=== PATIENT | female | born 1935 | race Asian ===

== ENCOUNTER 2016-07-24 14:05 | Inpatient (IN) | payer MEDICARE, OTHER ==
[~2016-07-24] VITALS: Ht 154.9 cm; Wt 70.3 kg
[~2016-07-24 14:05] MED LIST: ACTOS15 MG GT; AMLODIPINE BESY10 MG GT; ARTIFICIAL TEA1 EAC2 OP; ARTIFICIAL TEAR15 ML BOTH EYES; ASPIRIN EC325 MG GT; ASPIRIN81 MG GT; BONIVA150 MG GT; CIPROFLOXACIN500 M2 ORAL; DEXILANT60 MG GT; HYDRALAZINE HCL50 MG GT; KENALOG 0.1% CR15 GM APPLIC; LEVEMIR100 UNIT/1 SUBQ; LEVEMIR100 UNITS/ SUBQ; LIPITOR20 MG GT; MEROPENEM500 MG IV; METRONIDAZOLE500 MG ORAL; MULTIVITAMINS1 EAC8 GT; NAMENDA10 MG GT; NAMENDA5 MG GT; NOVOLIN R100 UNIT/1 SUBQ; NOVOLOG100 UNIT/3 SUBQ; PRO-STAT LIQUID30 ML ORAL; QUINAPRIL HCL40 MG GT; RANITIDINE50 MG/2 ML IV; SENNA S TABLET1 EAC1 GT; TRADJENTA5 MG GT; TRICOR145 MG GT; TYLENOL650 MG/20. GT; VANCOMYCIN1 GM IV; XYZAL5 MG GT
[2016-07-24 15:19] VITALS: BP 167/70
[2016-07-24 15:35] LABS: ALANINE AMINOTRANSFERASE 24 U/L (3-33); ALBUMIN/GLOBULIN RATIO 1.1 (1.0-2.7); ANION GAP 18 (5-15); ASPARTATE AMINO TRANSFERASE 28 U/L (5-40); CALCIUM 10.3 mg/dL (8.6-10.2); CARBON DIOXIDE 23 mEQ/L (20-30); CHLORIDE 106 mEQ/L (98-107); HEMOLYSIS 39; POTASSIUM 3.8 mEQ/L (3.4-4.9); SODIUM 147 mEQ/L (135-145); TOTAL PROTEIN 7.9 g/dL (6.6-8.7)
--- NOTE | 2016-07-24 15:51 | Consultation ---
Consult Note Consult Note asked to eval for renal failure- Chief Complaint: Malfunctioning Gastric Tube 81-year-old female presents to ED for G-tube placement. Per EMS patient G-tube is partially dislodged and has a tear. Noticed only today by nursing staff. Upon arrival patient showing no signs of distress. Patient has dementia and unable to provide any additional history at this time. No reported fevers or chills. No nausea or vomiting. No other aggravating relieving factors. Denies any other associated symptoms Coded Allergies: DORIPENEM (Verified Allergy, Severe, 03/06/15) PENICILLINS (Verified Allergy, Unknown, 06/22/13) Past Medical History: HTN, CHF, AFib, COPD, GERD Past Surgical History: other - gtube Hx Cardiac Problems: Yes - CHF, A fib, hyperlipidemia, CARDIOMEGALY Hx Hypertension: Yes Hx COPD: Yes Hx Diabetes: Yes Hx Cancer: No Hx Gastrointestinal Problems: Yes - GERD, Dysphagia, G-tube, APHASIA Hx Neurological Problems: Yes - Alzheimer's, dementia Hx Cerebrovascular Accident: Yes - Rt weakness, hemiplegia Hx Dementia: Yes Hx Alzheimer's Disease: Yes Hx Weakness: Yes - R SIDE Patient examined- data reviewed Assessment/Plan status: -Acute renal failure/ Underlying CKD -Dehydration -PEG malfunction -HTN (hypertension) -DM (diabetes mellitus) Plan: Hydrate- Per GI- Monitor renal parameters- BP control DINA MONAHAN Jul 24, 2016 15:51
[2016-07-24 16:33] LABS: BASOPHILS % (AUTO) 0.8 % (0.0-2.0); EOSINOPHILS % (AUTO) 2.3 % (0.0-3.0); LYMPHOCYTES % (AUTO) 9.7 % (20.0-45.0); MEAN CORPUSCULAR HEMOGLOBIN 32.5 PG (27.0-31.0); MEAN CORPUSCULAR HGB CONC 32.6 G/DL (32.0-36.0); MEAN CORPUSCULAR VOLUME 100 FL (80-99); MEAN PLATELET VOLUME 13.3 FL (6.5-10.1); MONOCYTES % (AUTO) 5.3 % (1.0-10.0); NEUTROPHILS % (AUTO) 81.9 % (45.0-75.0); PLATELET COUNT 205 K/UL (150-450); RED BLOOD COUNT 3.95 M/UL (4.20-5.40); RED CELL DISTRIBUTION WIDTH 13.3 % (11.6-14.8); WHITE BLOOD COUNT 13.4 K/UL (4.8-10.8)
[2016-07-24 16:56] LABS: APPEARANCE,URINE CLOUDY; KETONES,URINE NEGATIVE (NEGATIVE); LEUKOCYTE ESTERASE ,URINE NEGATIVE (NEGATIVE); NITRITE,URINE POSITIVE (NEGATIVE); PH,URINE 5 (4.5-8.0); PROTEIN,URINE 3+ (NEGATIVE); UROBILINOGEN,URINE NORMAL MG/DL (0.0-1.0)
[2016-07-24 17:04] LABS: RBC,URINE 0-2 /HPF (0 - 2); WBC,URINE 0-2 /HPF (0 - 2)
[2016-07-24 17:05] LABS: BACTERIA,URINE MANY /HPF
[2016-07-24 17:10] LABS: PROTHROMBIN TIME 10.3 SEC (9.30-11.50)
--- NOTE | 2016-07-24 18:06 | Infectious Diseases Prog Note ---
Assessment/Plan Problems: (1) UTI (urinary tract infection) Assessment & Plan: with H/O E coli resistant to quinolons, and allergy to penicillins and carbapenems, will start aztreonam empirically pending culture results. (2) Malfunction of percutaneous endoscopic gastrostomy (PEG) tube Assessment & Plan: recommend GI consult for replacement, hold tube feeding for now (3) Dehydration Assessment & Plan: continue IVF , since he is NPO, until G tube is fixed (4) Acute renal failure Assessment & Plan: suspect dehydration related, continue IVF, avoid nephrotoxic meds, nephrology is following (5) DM (diabetes mellitus) Assessment & Plan: recommend tight glycemic control to keep blood glucose between 80-120 Subjective Allergies: Coded Allergies: DORIPENEM (Verified Allergy, Severe, 03/06/15) PENICILLINS (Verified Allergy, Unknown, 06/22/13) Objective Vital Signs Last 24 Hour Vital Signs Date Time Temp Pulse Resp B/P Pulse Ox O2 Delivery O2 Flow Rate FiO2 07/24/16 17:26 216/132 07/24/16 15:19 97.2 65 20 167/70 99 Room Air 07/24/16 13:58 80 20 167/70 99 Room Air Height (Feet): 5 Height (Inches): 3.00 Weight (Pounds): 160 Laboratory Tests Test 07/24/16 14:55 07/24/16 16:00 07/24/16 16:40 Sodium Level 147 mEQ/L (135-145) H Potassium Level 3.8 mEQ/L (3.4-4.9) Chloride Level 106 mEQ/L (98-107) Carbon Dioxide Level 23 mEQ/L (20-30) Anion Gap 18 (5-15) H Blood Urea Nitrogen 58 mg/dL (7-23) H Creatinine 2.0 mg/dL (0.5-0.9) H Estimat Glomerular Filtration Rate mL/min (>60) Glucose Level 191 mg/dL (74-106) H Calcium Level 10.3 mg/dL (8.6-10.2) H Total Bilirubin 0.4 mg/dL (0.0-1.2) Aspartate Amino Transf (AST/SGOT) 28 U/L (5-40) Alanine Aminotransferase (ALT/SGPT) 24 U/L (3-33) Alkaline Phosphatase 83 U/L (35-104) Total Protein 7.9 g/dL (6.6-8.7) Albumin 4.3 g/dL (3.5-5.2) Globulin 3.6 g/dL Albumin/Globulin Ratio 1.1 (1.0-2.7) White Blood Count 13.4 K/UL (4.8-10.8) H Red Blood Count 3.95 M/UL (4.20-5.40) L Hemoglobin 12.8 G/DL (12.0-16.0) Hematocrit 39.3 % (37.0-47.0) Mean Corpuscular Volume 100 FL (80-99) H Mean Corpuscular Hemoglobin 32.5 PG (27.0-31.0) H Mean Corpuscular Hemoglobin Concent 32.6 G/DL (32.0-36.0) Red Cell Distribution Width 13.3 % (11.6-14.8) Platelet Count 205 K/UL (150-450) Mean Platelet Volume 13.3 FL (6.5-10.1) H Neutrophils (%) (Auto) 81.9 % (45.0-75.0) H Lymphocytes (%) (Auto) 9.7 % (20.0-45.0) L Monocytes (%) (Auto) 5.3 % (1.0-10.0) Eosinophils (%) (Auto) 2.3 % (0.0-3.0) Basophils (%) (Auto) 0.8 % (0.0-2.0) Prothrombin Time 10.3 SEC (9.30-11.50) Prothromb Time International Ratio 1.0 (0.9-1.1) Activated Partial Thromboplast Time 28 SEC (23-33) Urine Color Pale yellow Urine Appearance Cloudy Urine pH 5 (4.5-8.0) Urine Specific [place] 1.015 (1.005-1.035) Urine Protein 3+ (NEGATIVE) H Urine Glucose (UA) 3+ (NEGATIVE) H Urine Ketones Negative (NEGATIVE) Urine Occult Blood 1+ (NEGATIVE) H Urine Nitrite Positive (NEGATIVE) H Urine Bilirubin Negative (NEGATIVE) Urine Urobilinogen Normal MG/DL (0.0-1.0) Urine Leukocyte Esterase Negative (NEGATIVE) Urine RBC 0-2 /HPF (0 - 2) Urine WBC 0-2 /HPF (0 - 2) Urine Squamous Epithelial Cells None /LPF (NONE/OCC) Urine Bacteria Many /HPF (NONE) H Current Medications Medications (Trade) Dose Ordered Sig/Stephany Route PRN Reason Start Time Stop Time Status Last Admin Dose Admin Amlodipine Besylate 10 mg 10 mg DAILY GT 07/25/16 09:00 08/24/16 08:59 UNV Clonidine HCl 0.1 mg 0.1 mg Q4H PRN GT bp over 170 syst 07/24/16 16:00 08/23/16 15:59 UNV Levofloxacin (Levaquin 750mg/ D5W) 150 ml @ 100 mls/hr NOW ONCE IVPB 07/24/16 17:15 07/24/16 18:44 07/24/16 17:27 Sodium Chloride (Sodium Chloride 1000ml bag) 1,000 ml @ 50 mls/hr Q20H IV 07/24/16 15:45 08/23/16 15:44 UNV Mercedes Gamez M.D. Jul 24, 2016 18:06
[2016-07-24 19:03] VITALS: BP 164/79
[2016-07-24] MEDS ORDERED: Acetaminophen 650 MG SUPP RECTAL PRN (19:15)
[2016-07-24 20:00] VITALS: BP 168/67
[2016-07-24 21:11] VITALS: BP 151/61
[2016-07-24] MEDS: Aztreonam Inj 0.5 GM in D5W 55 ML IVPB SCH (21:56)
--- NOTE | 2016-07-24 22:28 | Emergency Room Report ---
History of Present Illness General Chief Complaint: Malfunctioning Gastric Tube Source: Medical Record Present Illness HPI 81-year-old female presents to ED for G-tube placement. Per EMS patient G-tube is partially dislodged and has a tear. Noticed only today by nursing staff. Upon arrival patient showing no signs of distress. Patient has dementia and unable to provide any additional history at this time. No reported fevers or chills. No nausea or vomiting. No other aggravating relieving factors. Denies any other associated symptoms Allergies: Coded Allergies: DORIPENEM (Verified Allergy, Severe, 03/06/15) PENICILLINS (Verified Allergy, Unknown, 06/22/13) Patient History Past Medical History: HTN, CHF, AFib, COPD, GERD Past Surgical History: other - gtube Pertinent Family History: none Social History: Denies: alcohol use, drug use, smoking Now: No Immunizations: UTD Reviewed Nursing Documentation: PMH: Agreed, PSxH: Agreed Nursing Documentation-PMH Past Medical History: No History, Except For Hx Cardiac Problems: Yes - CHF, A fib, hyperlipidemia, CARDIOMEGALY Hx Hypertension: Yes Hx COPD: Yes Hx Diabetes: Yes Hx Cancer: No Hx Gastrointestinal Problems: Yes - GERD, Dysphagia, G-tube, APHASIA Hx Neurological Problems: Yes - Alzheimer's, dementia Hx Cerebrovascular Accident: Yes - Rt weakness, hemiplegia Hx Dementia: Yes Hx Alzheimer's Disease: Yes Hx Weakness: Yes - R SIDE Review of Systems All Other Systems: negative except mentioned in HPI Physical Exam Vital Signs Date Time Temp Pulse Resp B/P Pulse Ox O2 Delivery O2 Flow Rate FiO2 07/24/16 13:58 80 20 167/70 99 Room Air 07/24/16 15:19 97.2 Sp02 EP Interpretation: reviewed, normal General Appearance: no apparent distress, alert, GCS 15, non-toxic Head: normocephalic Eyes: bilateral eye PERRL, bilateral eye normal inspection ENT: normal ENT inspection Neck: normal inspection Respiratory: chest non-tender, lungs clear, normal breath sounds, speaking full sentences Cardiovascular #1: regular rate, rhythm, no edema Gastrointestinal: normal bowel sounds, non tender, soft, non-distended, no guarding, no rebound, other - Gtube site C/D/I. superficial opening noted Rectal: deferred Genitourinary: no CVA tenderness Musculoskeletal: normal inspection Neurologic: other - dementia Psychiatric: other - dementia Skin: normal inspection Lymphatic: normal inspection Medical Decision Making Diagnostic Impression: Primary Impression: Acute renal failure Qualified Codes: N17.9 - Acute kidney failure, unspecified Additional Impressions: UTI (urinary tract infection) Qualified Codes: N39.0 - Urinary tract infection, site not specified malfunctioning G Tube Dehydration ER Course Hospital Course 81-year-old female presents to ED with dislodged G-tube Differential Diagnosis - cellulitis, abscess, malfunctioning Gtube, sepsis Clinical course Patient placed on stretcher. After initial history, physical exam reveals that the G-tube balloon was very superficial. This means that the G-tube was nearly completely dislodged. When they attempted to replace the G-tube I was unsuccessful as I believe the G-tube site has closed up At this time patient will require admission for new G-tube placed Labs reviewed-noted leukocytosis, hemoglobin/hematocrit stable, BUN/Cr elevated , Na elevated, UA + bacteria EKG - no ischemic changes CXR unremarkable Abx given. IVFs given. Dr Self consulted . Case discussed with Dr. Rosas and he agreed to accept the patient to his service for further care and support Diagnosis - ARF, UTI, malfunctioning G-tube, dehydration Admitted to floor in serious condition Labs Test 07/24/16 14:55 07/24/16 16:00 07/24/16 16:40 Sodium Level 147 mEQ/L (135-145) Potassium Level 3.8 mEQ/L (3.4-4.9) Chloride Level 106 mEQ/L (98-107) Carbon Dioxide Level 23 mEQ/L (20-30) Anion Gap 18 (5-15) Blood Urea Nitrogen 58 mg/dL (7-23) Creatinine 2.0 mg/dL (0.5-0.9) Estimat Glomerular Filtration Rate mL/min (>60) Glucose Level 191 mg/dL (74-106) Calcium Level 10.3 mg/dL (8.6-10.2) Total Bilirubin 0.4 mg/dL (0.0-1.2) Aspartate Amino Transf (AST/SGOT) 28 U/L (5-40) Alanine Aminotransferase (ALT/SGPT) 24 U/L (3-33) Alkaline Phosphatase 83 U/L (35-104) Total Protein 7.9 g/dL (6.6-8.7) Albumin 4.3 g/dL (3.5-5.2) Globulin 3.6 g/dL Albumin/Globulin Ratio 1.1 (1.0-2.7) White Blood Count 13.4 K/UL (4.8-10.8) Red Blood Count 3.95 M/UL (4.20-5.40) Hemoglobin 12.8 G/DL (12.0-16.0) Hematocrit 39.3 % (37.0-47.0) Mean Corpuscular Volume 100 FL (80-99) Mean Corpuscular Hemoglobin 32.5 PG (27.0-31.0) Mean Corpuscular Hemoglobin Concent 32.6 G/DL (32.0-36.0) Red Cell Distribution Width 13.3 % (11.6-14.8) Platelet Count 205 K/UL (150-450) Mean Platelet Volume 13.3 FL (6.5-10.1) Neutrophils (%) (Auto) 81.9 % (45.0-75.0) Lymphocytes (%) (Auto) 9.7 % (20.0-45.0) Monocytes (%) (Auto) 5.3 % (1.0-10.0) Eosinophils (%) (Auto) 2.3 % (0.0-3.0) Basophils (%) (Auto) 0.8 % (0.0-2.0) Prothrombin Time 10.3 SEC (9.30-11.50) Prothromb Time International Ratio 1.0 (0.9-1.1) Activated Partial Thromboplast Time 28 SEC (23-33) Urine Color Pale yellow Urine Appearance Cloudy Urine pH 5 (4.5-8.0) Urine Specific [place] 1.015 (1.005-1.035) Urine Protein 3+ (NEGATIVE) Urine Glucose (UA) 3+ (NEGATIVE) Urine Ketones Negative (NEGATIVE) Urine Occult Blood 1+ (NEGATIVE) Urine Nitrite Positive (NEGATIVE) Urine Bilirubin Negative (NEGATIVE) Urine Urobilinogen Normal MG/DL (0.0-1.0) Urine Leukocyte Esterase Negative (NEGATIVE) Urine RBC 0-2 /HPF (0 - 2) Urine WBC 0-2 /HPF (0 - 2) Urine Squamous Epithelial Cells None /LPF (NONE/OCC) Urine Bacteria Many /HPF (NONE) EKG Diagnostic Results Rate: normal Rhythm: NSR ST Segments: no acute changes ASA given to the pt in ED: No Rhythm Strip Diag. Results EP Interpretation: yes Rhythm: NSR, no PVC's, no ectopy Chest X-Ray Diagnostic Results EP Interpretation: No Findings: no consolidation, no effusion, no pneumothorax, no acute cardiopulmonary disease Number of Views: 1 Last Vital Signs Date Time Temp Pulse Resp B/P Pulse Ox O2 Delivery O2 Flow Rate FiO2 07/24/16 21:11 151/61 07/24/16 20:00 98.1 98 19 97 Room Air Status: improved Disposition: ADMITTED INPATIENT Condition: Serious Referrals: Jah Rosas MD (PCP) HAIR HAYES M.D. Jul 24, 2016 22:28
[2016-07-25] VITALS (7 sets, daily range): BP systolic 144–171; BP diastolic 68–88
[2016-07-25] MEDS: Aztreonam Inj 0.5 GM in D5W 55 ML IVPB SCH ×3 (05:54→21:05)
[2016-07-25 07:20] LABS: BASOPHILS % (AUTO) 0.7 % (0.0-2.0); EOSINOPHILS % (AUTO) 1.2 % (0.0-3.0); LYMPHOCYTES % (AUTO) 8.9 % (20.0-45.0); MEAN CORPUSCULAR HEMOGLOBIN 32.4 PG (27.0-31.0); MEAN CORPUSCULAR HGB CONC 33.1 G/DL (32.0-36.0); MEAN CORPUSCULAR VOLUME 98 FL (80-99); MEAN PLATELET VOLUME 13.8 FL (6.5-10.1); MONOCYTES % (AUTO) 5.7 % (1.0-10.0); NEUTROPHILS % (AUTO) 83.5 % (45.0-75.0); PLATELET COUNT 215 K/UL (150-450); RED BLOOD COUNT 3.74 M/UL (4.20-5.40); RED CELL DISTRIBUTION WIDTH 13.8 % (11.6-14.8); WHITE BLOOD COUNT 12.1 K/UL (4.8-10.8)
[2016-07-25 08:02] LABS: HEMOGLOBIN A1C 6.2 % (< 6.0)
[2016-07-25 08:21] LABS: ALANINE AMINOTRANSFERASE 19 U/L (3-33); ALBUMIN/GLOBULIN RATIO 1.2 (1.0-2.7); ANION GAP 19 (5-15); ASPARTATE AMINO TRANSFERASE 23 U/L (5-40); CALCIUM 9.6 mg/dL (8.6-10.2); CARBON DIOXIDE 22 mEQ/L (20-30); CHLORIDE 110 mEQ/L (98-107); CHOLESTEROL 129 mg/dL (< 200); CREATININE 2.2 mg/dL (0.5-0.9); CRP QUANT 0.9 mg/dL (< 0.5); HEMOLYSIS 9; LDL CHOLESTEROL (CALC.) 60 mg/dL (60-99); MAGNESIUM 2.3 mg/dL (1.7-2.5); PHOSPHORUS 3.5 mg/dL (2.5-4.8); POTASSIUM 4.1 mEQ/L (3.4-4.9); SODIUM 151 mEQ/L (135-145); TOTAL PROTEIN 7.2 g/dL (6.6-8.7); URIC ACID 5.4 mg/dL (3.0-7.5)
[2016-07-25 08:22] LABS: THYROID STIMULATING HORMONE 0.545 uIU/mL (0.300-4.500)
--- NOTE | 2016-07-25 12:26 | General Progress Note ---
Assessment/Plan Status: unchanged Status Narrative Cr higher 2.2 Assessment/Plan status: -Acute renal failure/ Underlying CKD -Dehydration -PEG malfunction -HTN (hypertension) -DM (diabetes mellitus) Plan: Hydrate- Per GI- Monitor renal parameters- BP control- on NTP and TTS II until GT is inserted Subjective ROS Limited/Unobtainable: No Constitutional: Reports: malaise, weakness Allergies: Coded Allergies: DORIPENEM (Verified Allergy, Severe, 03/06/15) PENICILLINS (Verified Allergy, Unknown, 06/22/13) Objective Last 24 Hour Vital Signs Date Time Temp Pulse Resp B/P Pulse Ox O2 Delivery O2 Flow Rate FiO2 07/25/16 09:00 94 144/77 07/25/16 08:42 97.0 94 19 144/77 95 Room Air 07/25/16 06:10 159/76 07/25/16 04:00 97.2 99 21 171/88 99 Room Air 07/25/16 00:18 97.2 92 19 162/68 99 Room Air 07/24/16 21:11 151/61 07/24/16 20:01 164/79 07/24/16 20:00 98.1 98 19 168/67 97 Room Air 07/24/16 19:03 97.3 100 20 164/79 100 Room Air 07/24/16 18:20 97.2 65 20 181/76 99 Room Air 07/24/16 18:10 181/76 07/24/16 17:26 216/132 07/24/16 15:19 97.2 65 20 167/70 99 Room Air 07/24/16 13:58 80 20 167/70 99 Room Air Intake and Output 07/24/16 07/25/16 19:00 07:00 Intake Total 0 ml 560 ml Output Total 800 ml Balance 0 ml -240 ml Intake Oral 0 ml IV Total 560 ml Output Urine Total 800 ml # Voids 1 # Bowel Movements 1 Laboratory Tests 07/24/16 14:55: Sodium Level 147H, Potassium Level 3.8, Chloride Level 106, Carbon Dioxide Level 23, Anion Gap 18H, Blood Urea Nitrogen 58H, Creatinine 2.0H, Estimat Glomerular Filtration Rate , Glucose Level 191H, Calcium Level 10.3H, Total Bilirubin 0.4, Aspartate Amino Transf (AST/SGOT) 28, Alanine Aminotransferase ( ALT/SGPT) 24, Alkaline Phosphatase 83, Total Protein 7.9, Albumin 4.3, Globulin 3.6, Albumin/Globulin Ratio 1.1 07/24/16 16:00: White Blood Count 13.4H, Red Blood Count 3.95L, Hemoglobin 12.8, Hematocrit 39.3 , Mean Corpuscular Volume 100H, Mean Corpuscular Hemoglobin 32.5H, Mean Corpuscular Hemoglobin Concent 32.6, Red Cell Distribution Width 13.3, Platelet Count 205, Mean Platelet Volume 13.3H, Neutrophils (%) (Auto) 81.9H, Lymphocytes (%) (Auto) 9.7L, Monocytes (%) (Auto) 5.3, Eosinophils (%) (Auto) 2.3, Basophils (%) (Auto) 0.8, Prothrombin Time 10.3, Prothromb Time International Ratio 1.0, Activated Partial Thromboplast Time 28 07/24/16 16:40: Urine Color Pale yellow, Urine Appearance Cloudy, Urine pH 5, Urine Specific [place] 1.015, Urine Protein 3+H, Urine Glucose (UA) 3+H, Urine Ketones Negative , Urine Occult Blood 1+H, Urine Nitrite PositiveH, Urine Bilirubin Negative, Urine Urobilinogen Normal, Urine Leukocyte Esterase Negative, Urine RBC 0-2, Urine WBC 0-2, Urine Squamous Epithelial Cells None, Urine Bacteria ManyH 07/25/16 02:00: Urine Eosinophils None seen, Urine Random Sodium 39 07/25/16 05:35: White Blood Count 12.1H, Red Blood Count 3.74L, Hemoglobin 12.1, Hematocrit 36.6L, Mean Corpuscular Volume 98, Mean Corpuscular Hemoglobin 32.4H, Mean Corpuscular Hemoglobin Concent 33.1, Red Cell Distribution Width 13.8, Platelet Count 215, Mean Platelet Volume 13.8H, Neutrophils (%) (Auto) 83.5H, Lymphocytes (%) (Auto) 8.9L, Monocytes (%) (Auto) 5.7, Eosinophils (%) (Auto) 1.2, Basophils (%) (Auto) 0.7, Sodium Level 151H, Potassium Level 4.1, Chloride Level 110H, Carbon Dioxide Level 22, Anion Gap 19H, Blood Urea Nitrogen 54H, Creatinine 2.2H, Estimat Glomerular Filtration Rate , Glucose Level 161H, Hemoglobin A1c 6.2H, Uric Acid 5.4, Calcium Level 9.6, Phosphorus Level 3.5, Magnesium Level 2.3, Total Bilirubin 0.5, Gamma Glutamyl Transpeptidase 17, Aspartate Amino Transf (AST/SGOT) 23, Alanine Aminotransferase (ALT/SGPT) 19, Alkaline Phosphatase 64, Total Creatine Kinase 63, C-Reactive Protein, Quantitative 0.9H, Pro-B-Type Natriuretic Peptide 3441H, Total Protein 7.2, Albumin 4.0, Globulin 3.2, Albumin/Globulin Ratio 1.2, Triglycerides Level 128, Cholesterol Level 129, LDL Cholesterol 60, HDL Cholesterol 43, Cholesterol/HDL Ratio 3.0L, Thyroid Stimulating Hormone (TSH) 0.545 Height (Feet): 5 Height (Inches): 3.00 Weight (Pounds): 160 General Appearance: no apparent distress Abdomen: other - GT out DINA MONAHAN Jul 25, 2016 12:25
--- NOTE | 2016-07-25 12:52 | Diagnostic Imaging Report ---
Indications: Cough Technique: Portable AP chest Findings: Comparison: 06/06/16 Cardiac silhouette remains enlarged. Pulmonary vasculature remains within normal limits. Inspiratory effort has improved. Lungs and pleura remain clear. Calcification and elongation, ectasia of thoracic aorta unchanged. Bones are diffusely demineralized.. IMPRESSION: No evidence of acute disease, unchanged Stable chronic changes as described
[2016-07-25] MEDS: Nitroglycerin 2% oint pkt TOPIC SCH ×2 (13:17→18:49)
--- NOTE | 2016-07-25 16:56 | General Progress Note ---
Assessment/Plan Assessment/Plan Assessment - OBS - Dysphagia - failed swallow - HTN - DM - Azotemia - No family, next of kin, or DPOA available for formal consent Recommendations - NPO - IVF - Needs PEG on urgent basis to avoid malnutrition and demise. Will proceed with MD consent - PEG Thursday at 10 am Subjective Allergies: Coded Allergies: DORIPENEM (Verified Allergy, Severe, 03/06/15) PENICILLINS (Verified Allergy, Unknown, 06/22/13) Objective Last 24 Hour Vital Signs Date Time Temp Pulse Resp B/P Pulse Ox O2 Delivery O2 Flow Rate FiO2 07/25/16 16:00 97.9 90 20 152/81 98 Room Air 07/25/16 13:17 149/75 07/25/16 12:35 96.9 94 19 149/75 95 Room Air 07/25/16 09:00 94 144/77 07/25/16 08:42 97.0 94 19 144/77 95 Room Air 07/25/16 06:10 159/76 07/25/16 04:00 97.2 99 21 171/88 99 Room Air 07/25/16 00:18 97.2 92 19 162/68 99 Room Air 07/24/16 21:11 151/61 07/24/16 20:01 164/79 07/24/16 20:00 98.1 98 19 168/67 97 Room Air 07/24/16 19:03 97.3 100 20 164/79 100 Room Air 07/24/16 18:20 97.2 65 20 181/76 99 Room Air 07/24/16 18:10 181/76 07/24/16 17:26 216/132 Intake and Output 07/24/16 07/25/16 19:00 07:00 Intake Total 0 ml 560 ml Output Total 800 ml Balance 0 ml -240 ml Intake Oral 0 ml IV Total 560 ml Output Urine Total 800 ml # Voids 1 # Bowel Movements 1 Laboratory Tests 07/25/16 02:00: Urine Eosinophils None seen, Urine Random Sodium 39 07/25/16 05:35: White Blood Count 12.1H, Red Blood Count 3.74L, Hemoglobin 12.1, Hematocrit 36.6L, Mean Corpuscular Volume 98, Mean Corpuscular Hemoglobin 32.4H, Mean Corpuscular Hemoglobin Concent 33.1, Red Cell Distribution Width 13.8, Platelet Count 215, Mean Platelet Volume 13.8H, Neutrophils (%) (Auto) 83.5H, Lymphocytes (%) (Auto) 8.9L, Monocytes (%) (Auto) 5.7, Eosinophils (%) (Auto) 1.2, Basophils (%) (Auto) 0.7, Sodium Level 151H, Potassium Level 4.1, Chloride Level 110H, Carbon Dioxide Level 22, Anion Gap 19H, Blood Urea Nitrogen 54H, Creatinine 2.2H, Estimat Glomerular Filtration Rate , Glucose Level 161H, Hemoglobin A1c 6.2H, Uric Acid 5.4, Calcium Level 9.6, Phosphorus Level 3.5, Magnesium Level 2.3, Total Bilirubin 0.5, Gamma Glutamyl Transpeptidase 17, Aspartate Amino Transf (AST/SGOT) 23, Alanine Aminotransferase (ALT/SGPT) 19, Alkaline Phosphatase 64, Total Creatine Kinase 63, C-Reactive Protein, Quantitative 0.9H, Pro-B-Type Natriuretic Peptide 3441H, Total Protein 7.2, Albumin 4.0, Globulin 3.2, Albumin/Globulin Ratio 1.2, Triglycerides Level 128, Cholesterol Level 129, LDL Cholesterol 60, HDL Cholesterol 43, Cholesterol/HDL Ratio 3.0L, Thyroid Stimulating Hormone (TSH) 0.545 Height (Feet): 5 Height (Inches): 3.00 Weight (Pounds): 160 MARK DELGADO Jul 25, 2016 16:56
--- NOTE | 2016-07-25 17:08 | Consultation ---
DATE OF CONSULTATION: INFECTIOUS DISEASE CONSULTATION REQUESTING PHYSICIAN: Jah Rosas M.D. REASON FOR CONSULTATION: Urinary tract infection. Recommendation for antibiotics therapy. HISTORY OF PRESENT ILLNESS: The patient is a 81-year-old female with past medical history of hypertension, CHF, atrial fibrillation, COPD and GERD who had G-tube for feeding was sent to [facility] for malfunctioning G-tube. G-tube was found to be dislodged and had a tear in it. It was noticed by nursing staff. There was no drainage or skin erythema or any infection around it. The patient did not have any fever or chills. Urinalysis in the emergency room showed evidence of infection, so I was consulted by the primary provider for antibiotics recommendation to treat her urinary tract infection. Of note, the patient is demented, cannot provide any history and history was mainly obtained from the medical record and nursing staff. PAST MEDICAL HISTORY: Significant for hypertension, CHF, atrial fibrillation, COPD, and GERD. PAST SURGICAL HISTORY: She had G-tube placement . MEDICATIONS: The patient received levofloxacin in the emergency room. For the rest of her medications, please refer to [facility]. ALLERGIES: She is allergic to doripenem and penicillin. SOCIAL HISTORY: The patient lives with her daughter. Denies any recent drugs, tobacco, or alcohol. FAMILY HISTORY: Unable to obtain at this point. REVIEW OF SYSTEMS: Unable to obtain. The patient is demented, cannot provide any history. PHYSICAL EXAMINATION: GENERAL: The patient is an elderly female, demented, lying in bed, alert, not in distress. VITAL SIGNS: Temperature 97.3 degrees, pulse 100, respirations 20, blood pressure 164/79, and saturation 100% on room air. HEENT: Normocephalic and atraumatic. Pale sclera. Dry oral mucosa. NECK: Supple. No lymphadenopathy. CARDIOVASCULAR: She is tachycardic. S1 and S2 positive. No gallop. LUNGS: She had diminished breathing sounds at the bases. No wheezing or rhonchi. Normal breathing efforts. ABDOMEN: Soft, nontender, and nondistended. No guarding. No organomegaly. G-tube site looks intact. EXTREMITIES: No edema. No cyanosis. SKIN: She had fair on her lower extremities skin tear. LABORATORY AND DIAGNOSTIC DATA: White count 13.4, hemoglobin 12.8, and platelet count 205,000. BUN of 58 and creatinine of 2. Urinalysis showed positive nitrites, many bacteria in the urine, and no eosinophil seen. Microbiology, urine culture was sent. Imaging not available in the system yet. ASSESSMENT AND PLAN: 1. Urinary tract infection with history of E. coli resistant to quinolones and she is allergic to penicillin and carbapenem. We will start aztreonam empirically. Pending culture results. We will tailor antibiotics as needed. 2. Malfunctioning of gastrostomy tube. Recommend GI consultation for possible replacement and hold tube feeding for now. 3. Acute renal failure due to dehydration. Continue IV fluids. Avoid nephrotoxic medications. Consult Nephrology. 4. Dehydration. Continue IV fluids since the patient is NPO until G-tube is replaced. 5. Diabetes. Recommend tight glycemic control to keep blood glucose between 80s to 120s. 6. Dementia. Continue supportive care. 7. Lower extremity skin tear. Continue local care. Consult wound care team. Mercedes Gamez M.D. DR: MEG JOB#: [id number] CC: [id number]
[2016-07-25] MEDS ORDERED: 1/2 NS 1000ml IV ONE (18:19)
--- NOTE | 2016-07-25 20:27 | Wound Nurse Progress Note ---
Wound RN Progress Note Wound Consult Saw this Pt today. With an order for topical Elimite cream from MD. Upon assessment noted a rashes on lower abdominal area, Bilateral lower and upper extremities. Pt complaint of itchiness. no bleeding no drainage noted. will cont to monitor. ELVA MORRIS RN Jul 25, 2016 20:27
[2016-07-26] VITALS: BP 174/82
[2016-07-26] MEDS: Nitroglycerin 2% oint pkt TOPIC SCH ×4 (00:25→18:03)
[2016-07-26 04:00] VITALS: BP 146/75
[2016-07-26] MEDS: Aztreonam Inj 0.5 GM in D5W 55 ML IVPB SCH ×3 (06:20→21:52)
[2016-07-26 06:55] LABS: ALANINE AMINOTRANSFERASE 17 U/L (3-33); ALBUMIN/GLOBULIN RATIO 1.3 (1.0-2.7); ANION GAP 18 (5-15); ASPARTATE AMINO TRANSFERASE 21 U/L (5-40); CALCIUM 9.1 mg/dL (8.6-10.2); CARBON DIOXIDE 22 mEQ/L (20-30); CHLORIDE 113 mEQ/L (98-107); CREATININE 2.1 mg/dL (0.5-0.9); HEMOLYSIS 3; MAGNESIUM 2.3 mg/dL (1.7-2.5); PHOSPHORUS 3.7 mg/dL (2.5-4.8); POTASSIUM 3.6 mEQ/L (3.4-4.9); SODIUM 153 mEQ/L (135-145); TOTAL PROTEIN 6.9 g/dL (6.6-8.7)
[2016-07-26 08:00] VITALS: BP 149/68
--- NOTE | 2016-07-26 09:54 | General Progress Note ---
Assessment/Plan Status: unchanged Assessment/Plan status: -Acute renal failure/ Underlying CKD -Dehydration -PEG malfunction -HTN (hypertension) -DM (diabetes mellitus) Plan: Hydrate- with D5 Per GI- Monitor renal parameters- BP control- on NTP and TTS II until GT is inserted Subjective ROS Limited/Unobtainable: No Constitutional: Reports: malaise Allergies: Coded Allergies: DORIPENEM (Verified Allergy, Severe, 03/06/15) PENICILLINS (Verified Allergy, Unknown, 06/22/13) Objective Last 24 Hour Vital Signs Date Time Temp Pulse Resp B/P Pulse Ox O2 Delivery O2 Flow Rate FiO2 07/26/16 08:28 77 149/68 07/26/16 08:00 97.7 77 19 149/68 100 Room Air 07/26/16 06:39 146/75 07/26/16 04:00 97.9 93 18 146/75 98 07/26/16 00:25 174/82 07/26/16 00:00 97.7 89 18 174/82 97 Room Air 07/25/16 20:00 97.8 93 19 151/76 98 Room Air 07/25/16 18:49 152/81 07/25/16 16:00 97.9 90 20 152/81 98 Room Air 07/25/16 13:17 149/75 07/25/16 12:35 96.9 94 19 149/75 95 Room Air Intake and Output 07/25/16 07/26/16 19:00 07:00 Intake Total 655 ml 255 ml Output Total 675 ml 475 ml Balance -20 ml -220 ml IV Total 655 ml 255 ml Output Urine Total 675 ml 475 ml # Bowel Movements 1 Laboratory Tests 07/26/16 05:10: Sodium Level 153H, Potassium Level 3.6, Chloride Level 113H, Carbon Dioxide Level 22, Anion Gap 18H, Blood Urea Nitrogen 51H, Creatinine 2.1H, Estimat Glomerular Filtration Rate , Glucose Level 149H, Calcium Level 9.1, Phosphorus Level 3.7, Magnesium Level 2.3, Total Bilirubin 0.5, Aspartate Amino Transf (AST /SGOT) 21, Alanine Aminotransferase (ALT/SGPT) 17, Alkaline Phosphatase 61, Total Protein 6.9, Albumin 3.9, Globulin 3.0, Albumin/Globulin Ratio 1.3 07/26/16 06:00: Urine Eosinophils None seen Height (Feet): 5 Height (Inches): 3.00 Weight (Pounds): 160 General Appearance: no apparent distress Objective PE not changed DINA MONAHAN Jul 26, 2016 09:54
[2016-07-26 11:13] VITALS: BP 137/61
--- NOTE | 2016-07-26 11:45 | General Progress Note ---
Assessment/Plan Problem List: (1) HTN (hypertension) ICD Codes: I10 - HTN (hypertension) SNOMED: 36715184 (2) Anemia ICD Codes: D64.9 - Anemia, unspecified SNOMED: 267723550 (3) Renal insufficiency (4) UTI (urinary tract infection) ICD Codes: N39.0 - Urinary tract infection, site not specified SNOMED: 23148866 (5) DM (diabetes mellitus) ICD Codes: E11.9 - DM (diabetes mellitus) SNOMED: 94259769 (6) Malfunction of percutaneous endoscopic gastrostomy (PEG) tube ICD Codes: K94.23 - Malfunction of percutaneous endoscopic gastrostomy (PEG) tube SNOMED: 911346469 (7) Acute renal failure ICD Codes: N17.9 - Acute renal failure SNOMED: 02219615 Qualifiers: Qualified Codes: N17.9 - Acute kidney failure, unspecified (8) UTI (urinary tract infection) ICD Codes: N39.0 - Urinary tract infection, site not specified SNOMED: 71982631 Qualifiers: Qualified Codes: N39.0 - Urinary tract infection, site not specified (9) Sepsis ICD Codes: A41.9 - Sepsis, unspecified organism SNOMED: 86692981 Status: progressing Assessment/Plan tear of peg arf sepsis uti afebrile clinically improving Subjective ROS Limited/Unobtainable: Yes Constitutional: Reports: no symptoms Allergies: Coded Allergies: DORIPENEM (Verified Allergy, Severe, 03/06/15) PENICILLINS (Verified Allergy, Unknown, 06/22/13) Objective Last 24 Hour Vital Signs Date Time Temp Pulse Resp B/P Pulse Ox O2 Delivery O2 Flow Rate FiO2 07/26/16 11:18 137/61 07/26/16 11:13 97.2 71 18 137/61 100 Room Air 07/26/16 08:28 77 149/68 07/26/16 08:00 97.7 77 19 149/68 100 Room Air 07/26/16 06:39 146/75 07/26/16 04:00 97.9 93 18 146/75 98 07/26/16 00:25 174/82 07/26/16 00:00 97.7 89 18 174/82 97 Room Air 07/25/16 20:00 97.8 93 19 151/76 98 Room Air 07/25/16 18:49 152/81 07/25/16 16:00 97.9 90 20 152/81 98 Room Air 07/25/16 13:17 149/75 07/25/16 12:35 96.9 94 19 149/75 95 Room Air Intake and Output 07/25/16 07/26/16 19:00 07:00 Intake Total 655 ml 310 ml Output Total 675 ml 475 ml Balance -20 ml -165 ml IV Total 655 ml 310 ml Output Urine Total 675 ml 475 ml # Bowel Movements 1 Laboratory Tests 07/26/16 05:10: Sodium Level 153H, Potassium Level 3.6, Chloride Level 113H, Carbon Dioxide Level 22, Anion Gap 18H, Blood Urea Nitrogen 51H, Creatinine 2.1H, Estimat Glomerular Filtration Rate , Glucose Level 149H, Calcium Level 9.1, Phosphorus Level 3.7, Magnesium Level 2.3, Total Bilirubin 0.5, Aspartate Amino Transf (AST /SGOT) 21, Alanine Aminotransferase (ALT/SGPT) 17, Alkaline Phosphatase 61, Total Protein 6.9, Albumin 3.9, Globulin 3.0, Albumin/Globulin Ratio 1.3 07/26/16 06:00: Urine Eosinophils None seen Height (Feet): 5 Height (Inches): 3.00 Weight (Pounds): 160 EENT: PERRL/EOMI Neck: supple Cardiovascular: normal rate Respiratory/Chest: lungs clear Abdomen: soft Jah Rosas MD Jul 26, 2016 11:45
--- NOTE | 2016-07-26 13:50 | General Progress Note ---
Assessment/Plan Problem List: (1) Anemia ICD Codes: D64.9 - Anemia, unspecified SNOMED: 936051012 (2) DM (diabetes mellitus) ICD Codes: E11.9 - DM (diabetes mellitus) SNOMED: 14225896 (3) malfunctioning G Tube Assessment/Plan pending PEG placement on Thursday Subjective ROS Limited/Unobtainable: No Allergies: Coded Allergies: DORIPENEM (Verified Allergy, Severe, 03/06/15) PENICILLINS (Verified Allergy, Unknown, 06/22/13) Objective Last 24 Hour Vital Signs Date Time Temp Pulse Resp B/P Pulse Ox O2 Delivery O2 Flow Rate FiO2 07/26/16 11:18 137/61 07/26/16 11:13 97.2 71 18 137/61 100 Room Air 07/26/16 08:28 77 149/68 07/26/16 08:00 97.7 77 19 149/68 100 Room Air 07/26/16 06:39 146/75 07/26/16 04:00 97.9 93 18 146/75 98 07/26/16 00:25 174/82 07/26/16 00:00 97.7 89 18 174/82 97 Room Air 07/25/16 20:00 97.8 93 19 151/76 98 Room Air 07/25/16 18:49 152/81 07/25/16 16:00 97.9 90 20 152/81 98 Room Air Intake and Output 07/25/16 07/26/16 19:00 07:00 Intake Total 655 ml 310 ml Output Total 675 ml 475 ml Balance -20 ml -165 ml IV Total 655 ml 310 ml Output Urine Total 675 ml 475 ml # Bowel Movements 1 Laboratory Tests 07/26/16 05:10: Sodium Level 153H, Potassium Level 3.6, Chloride Level 113H, Carbon Dioxide Level 22, Anion Gap 18H, Blood Urea Nitrogen 51H, Creatinine 2.1H, Estimat Glomerular Filtration Rate , Glucose Level 149H, Calcium Level 9.1, Phosphorus Level 3.7, Magnesium Level 2.3, Total Bilirubin 0.5, Aspartate Amino Transf (AST /SGOT) 21, Alanine Aminotransferase (ALT/SGPT) 17, Alkaline Phosphatase 61, Total Protein 6.9, Albumin 3.9, Globulin 3.0, Albumin/Globulin Ratio 1.3 07/26/16 06:00: Urine Eosinophils None seen Height (Feet): 5 Height (Inches): 3.00 Weight (Pounds): 160 General Appearance: no apparent distress EENT: normal ENT inspection Neck: supple Cardiovascular: normal rate Respiratory/Chest: decreased breath sounds Abdomen: normal bowel sounds, non tender, soft Extremities: non-tender SOUTH RIBEIRO Jul 26, 2016 13:49
[2016-07-26 16:00] VITALS: BP 100/65
--- NOTE | 2016-07-26 16:41 | Infectious Diseases Prog Note ---
Assessment/Plan Problems: (1) UTI (urinary tract infection) Assessment & Plan: with MDR E.coli , continue aztreonam for 5 days (2) Malfunction of percutaneous endoscopic gastrostomy (PEG) tube Assessment & Plan: recommend GI consult for replacement, hold tube feeding for now (3) Dehydration Assessment & Plan: continue IVF , since he is NPO, until G tube is fixed (4) Acute renal failure Assessment & Plan: suspect dehydration related, continue IVF, avoid nephrotoxic meds, nephrology is following (5) DM (diabetes mellitus) Assessment & Plan: recommend tight glycemic control to keep blood glucose between 80-120 (6) Renal insufficiency Assessment & Plan: monitor renal function , avoid nephrotoxic meds Subjective ROS Limited/Unobtainable: Yes Allergies: Coded Allergies: DORIPENEM (Verified Allergy, Severe, 03/06/15) PENICILLINS (Verified Allergy, Unknown, 06/22/13) Subjective she is demented, lying in bed, alert, not in distress. Objective Vital Signs Last 24 Hour Vital Signs Date Time Temp Pulse Resp B/P Pulse Ox O2 Delivery O2 Flow Rate FiO2 07/26/16 16:00 64 16 100/65 Room Air 07/26/16 11:18 137/61 07/26/16 11:13 97.2 71 18 137/61 100 Room Air 07/26/16 08:28 77 149/68 07/26/16 08:00 97.7 77 19 149/68 100 Room Air 07/26/16 06:39 146/75 07/26/16 04:00 97.9 93 18 146/75 98 07/26/16 00:25 174/82 07/26/16 00:00 97.7 89 18 174/82 97 Room Air 07/25/16 20:00 97.8 93 19 151/76 98 Room Air 07/25/16 18:49 152/81 Height (Feet): 5 Height (Inches): 3.00 Weight (Pounds): 160 General Appearance: WD/WN, no acute distress HEENT: normocephalic, atraumatic, anicteric, mucous membranes moist Respiratory/Chest: chest wall non-tender, lungs clear, normal breath sounds, no respiratory distress, no accessory muscle use Cardiovascular: normal peripheral pulses, normal rate, regular rhythm Abdomen: normal bowel sounds, soft, non tender, no organomegaly, non distended , no mass, no scars Extremities: no cyanosis, no clubbing Skin: no rash, no lesions, ulcers Microbiology Date/Time Source Procedure Growth Status 07/24/16 16:25 Nasal Nares MRSA Culture - Final NO METHICILLIN RESISTANT STAPH AUREUS... Complete 07/24/16 16:40 Urine,Clean Catch Urine Culture - Final Escherichia Coli Complete 07/24/16 23:45 Abdomen Gram Stain - Final Resulted 07/24/16 23:45 Wound Culture - Preliminary Staphylococcus Aureus Resulted 07/24/16 16:25 Rectal Mucosa VRE Culture - Final NO VANCOMYCIN RESISTANT ENTEROCOCCUS ... Complete Laboratory Tests Test 07/26/16 05:10 07/26/16 06:00 Sodium Level 153 mEQ/L (135-145) H Potassium Level 3.6 mEQ/L (3.4-4.9) Chloride Level 113 mEQ/L (98-107) H Carbon Dioxide Level 22 mEQ/L (20-30) Anion Gap 18 (5-15) H Blood Urea Nitrogen 51 mg/dL (7-23) H Creatinine 2.1 mg/dL (0.5-0.9) H Estimat Glomerular Filtration Rate mL/min (>60) Glucose Level 149 mg/dL (74-106) H Calcium Level 9.1 mg/dL (8.6-10.2) Phosphorus Level 3.7 mg/dL (2.5-4.8) Magnesium Level 2.3 mg/dL (1.7-2.5) Total Bilirubin 0.5 mg/dL (0.0-1.2) Aspartate Amino Transf (AST/SGOT) 21 U/L (5-40) Alanine Aminotransferase (ALT/SGPT) 17 U/L (3-33) Alkaline Phosphatase 61 U/L (35-104) Total Protein 6.9 g/dL (6.6-8.7) Albumin 3.9 g/dL (3.5-5.2) Globulin 3.0 g/dL Albumin/Globulin Ratio 1.3 (1.0-2.7) Urine Eosinophils None seen Current Medications Medications (Trade) Dose Ordered Sig/Stephany Route PRN Reason Start Time Stop Time Status Last Admin Dose Admin Acetaminophen (Tylenol) 650 mg Q4H PRN RECTAL Mild Pain (Pain Scale 1-3) 07/24/16 19:15 08/23/16 19:14 Amlodipine Besylate (Norvasc) 10 mg DAILY GT 07/25/16 09:00 08/24/16 08:59 Aztreonam/Dextrose (Azactam/D5W) 55 ml @ 110 mls/hr Q8HR IVPB 07/24/16 22:00 07/31/16 21:59 07/26/16 13:13 Clonidine HCl (Catapres TTS-2) 1 patch QWEEK TDERMAL 07/24/16 20:00 08/23/16 19:59 07/24/16 20:01 Clonidine HCl 0.1 mg 0.1 mg Q4H PRN GT bp over 170 syst 07/24/16 16:00 08/23/16 15:59 Dextrose (D5W 1000ml) 1,000 ml @ 50 mls/hr Q20H IV 07/26/16 10:00 08/25/16 09:59 07/26/16 10:14 Dextrose (Dextrose 50%) 50 ml STAT PRN IV Hypoglycemia 07/24/16 20:30 08/23/16 20:29 Nitroglycerin 1 inch 1 inch Q6HR TOPIC 07/25/16 13:30 08/24/16 13:29 07/26/16 11:18 Vancomycin HCl 500 mg/Dextrose 110 ml @ 110 mls/hr ONCE ONCE IVPB 07/28/16 08:00 07/28/16 08:59 Mercedes Gamez M.D. Jul 26, 2016 16:41
[2016-07-26 19:00] VITALS: BP 110/66
[2016-07-27] VITALS: BP 136/60
[2016-07-27] MEDS: Nitroglycerin 2% oint pkt TOPIC SCH ×4 (01:48→18:22)
[2016-07-27] MEDS: Aztreonam Inj 0.5 GM in D5W 55 ML IVPB SCH ×3 (06:17→22:10)
[2016-07-27 08:15] VITALS: BP 93/53
--- NOTE | 2016-07-27 10:55 | General Progress Note ---
Assessment/Plan Status: unchanged Status Narrative BP lower Assessment/Plan status: -Acute renal failure/ Underlying CKD -Dehydration -PEG malfunction -HTN (hypertension) -DM (diabetes mellitus) Plan: Hydrate- with D5 Per GI- parameters for NTP Monitor renal parameters- BP control- on NTP and TTS II until GT is inserted Subjective ROS Limited/Unobtainable: No Constitutional: Reports: malaise Allergies: Coded Allergies: DORIPENEM (Verified Allergy, Severe, 03/06/15) PENICILLINS (Verified Allergy, Unknown, 06/22/13) Objective Last 24 Hour Vital Signs Date Time Temp Pulse Resp B/P Pulse Ox O2 Delivery O2 Flow Rate FiO2 07/27/16 09:00 58 93/53 07/27/16 08:15 97.7 58 21 93/53 97 Room Air 07/27/16 06:11 162/86 07/27/16 01:48 136/60 07/27/16 00:00 96.3 58 20 136/60 98 Room Air 07/26/16 19:00 96.3 68 17 110/66 100 Room Air 07/26/16 18:03 100/65 07/26/16 16:00 64 16 100/65 Room Air 07/26/16 11:18 137/61 07/26/16 11:13 97.2 71 18 137/61 100 Room Air Intake and Output 07/26/16 07/27/16 19:00 07:00 Intake Total 455 ml 715 ml Output Total 320 ml 625 ml Balance 135 ml 90 ml IV Total 455 ml 715 ml Output Urine Total 320 ml 625 ml Height (Feet): 5 Height (Inches): 3.00 Weight (Pounds): 160 General Appearance: no apparent distress Objective PE not changed DINA MONAHAN Jul 27, 2016 10:55
[2016-07-27 12:15] VITALS: BP 143/70
--- NOTE | 2016-07-27 12:52 | General Progress Note ---
Assessment/Plan Problem List: (1) HTN (hypertension) ICD Codes: I10 - HTN (hypertension) SNOMED: 87802393 (2) Anemia ICD Codes: D64.9 - Anemia, unspecified SNOMED: 951665255 (3) Renal insufficiency (4) UTI (urinary tract infection) ICD Codes: N39.0 - Urinary tract infection, site not specified SNOMED: 36834708 (5) DM (diabetes mellitus) ICD Codes: E11.9 - DM (diabetes mellitus) SNOMED: 12824450 (6) Malfunction of percutaneous endoscopic gastrostomy (PEG) tube ICD Codes: K94.23 - Malfunction of percutaneous endoscopic gastrostomy (PEG) tube SNOMED: 218136261 (7) Acute renal failure ICD Codes: N17.9 - Acute renal failure SNOMED: 73163832 Qualifiers: Qualified Codes: N17.9 - Acute kidney failure, unspecified (8) UTI (urinary tract infection) ICD Codes: N39.0 - Urinary tract infection, site not specified SNOMED: 64219663 Qualifiers: Qualified Codes: N39.0 - Urinary tract infection, site not specified (9) Sepsis ICD Codes: A41.9 - Sepsis, unspecified organism SNOMED: 30639489 Status: progressing Assessment/Plan tear of peg repair per dr cesar afebrile azotemia improving dehydration improving uti abx per id Subjective ROS Limited/Unobtainable: Yes Allergies: Coded Allergies: DORIPENEM (Verified Allergy, Severe, 03/06/15) PENICILLINS (Verified Allergy, Unknown, 06/22/13) Objective Last 24 Hour Vital Signs Date Time Temp Pulse Resp B/P Pulse Ox O2 Delivery O2 Flow Rate FiO2 07/27/16 12:15 97.6 64 19 143/70 97 Room Air 07/27/16 09:00 58 93/53 07/27/16 08:15 97.7 58 21 93/53 97 Room Air 07/27/16 06:11 162/86 07/27/16 01:48 136/60 07/27/16 00:00 96.3 58 20 136/60 98 Room Air 07/26/16 19:00 96.3 68 17 110/66 100 Room Air 07/26/16 18:03 100/65 07/26/16 16:00 64 16 100/65 Room Air Intake and Output 07/26/16 07/27/16 19:00 07:00 Intake Total 455 ml 715 ml Output Total 320 ml 625 ml Balance 135 ml 90 ml IV Total 455 ml 715 ml Output Urine Total 320 ml 625 ml Laboratory Tests 07/27/16 10:51: Urine Eosinophils [Pending] Height (Feet): 5 Height (Inches): 3.00 Weight (Pounds): 160 General Appearance: confused Cardiovascular: normal rate Respiratory/Chest: lungs clear Abdomen: non tender Jah Rosas MD Jul 27, 2016 12:52
[2016-07-27 15:59] VITALS: BP 146/93
--- NOTE | 2016-07-27 16:59 | General Progress Note ---
Assessment/Plan Assessment/Plan Assessment - OBS - Dysphagia - failed swallow - HTN - DM - Azotemia - No family, next of kin, or DPOA available for formal consent Recommendations - NPO - IVF - Needs PEG on urgent basis to avoid malnutrition and demise. Will proceed with MD consent - PEG Thursday at 10 am Subjective Allergies: Coded Allergies: DORIPENEM (Verified Allergy, Severe, 03/06/15) PENICILLINS (Verified Allergy, Unknown, 06/22/13) Subjective confused no events overnight MRSA (+) at GT site Objective Last 24 Hour Vital Signs Date Time Temp Pulse Resp B/P Pulse Ox O2 Delivery O2 Flow Rate FiO2 07/27/16 15:59 97.6 65 19 146/93 97 Room Air 07/27/16 13:40 143/70 07/27/16 12:15 97.6 64 19 143/70 97 Room Air 07/27/16 09:00 58 93/53 07/27/16 08:15 97.7 58 21 93/53 97 Room Air 07/27/16 06:11 162/86 07/27/16 01:48 136/60 07/27/16 00:00 96.3 58 20 136/60 98 Room Air 07/26/16 19:00 96.3 68 17 110/66 100 Room Air 07/26/16 18:03 100/65 Intake and Output 07/26/16 07/27/16 19:00 07:00 Intake Total 455 ml 715 ml Output Total 320 ml 625 ml Balance 135 ml 90 ml IV Total 455 ml 715 ml Output Urine Total 320 ml 625 ml Laboratory Tests 07/27/16 10:51: Urine Eosinophils None seen Height (Feet): 5 Height (Inches): 3.00 Weight (Pounds): 160 Objective Elderly woman NCAT supple CTA RRR Soft ND, GT site closed no edema OBS MARK DELGADO Jul 27, 2016 16:59
--- NOTE | 2016-07-27 19:58 | Infectious Diseases Prog Note ---
Assessment/Plan Problems: (1) UTI (urinary tract infection) Assessment & Plan: with MDR E.coli , continue aztreonam for 5 days (2) Malfunction of percutaneous endoscopic gastrostomy (PEG) tube Assessment & Plan: recommend GI consult for replacement, hold tube feeding for now (3) Dehydration Assessment & Plan: continue IVF , since he is NPO, until G tube is fixed (4) Acute renal failure Assessment & Plan: suspect dehydration related, continue IVF, avoid nephrotoxic meds, nephrology is following (5) DM (diabetes mellitus) Assessment & Plan: recommend tight glycemic control to keep blood glucose between 80-120 (6) Renal insufficiency Assessment & Plan: monitor renal function , avoid nephrotoxic meds Subjective ROS Limited/Unobtainable: Yes Allergies: Coded Allergies: DORIPENEM (Verified Allergy, Severe, 03/06/15) PENICILLINS (Verified Allergy, Unknown, 06/22/13) Subjective she is demented, lying in bed, alert, not in distress. Objective Vital Signs Last 24 Hour Vital Signs Date Time Temp Pulse Resp B/P Pulse Ox O2 Delivery O2 Flow Rate FiO2 07/27/16 18:22 146/93 07/27/16 15:59 97.6 65 19 146/93 97 Room Air 07/27/16 13:40 143/70 07/27/16 12:15 97.6 64 19 143/70 97 Room Air 07/27/16 09:00 58 93/53 07/27/16 08:15 97.7 58 21 93/53 97 Room Air 07/27/16 06:11 162/86 07/27/16 01:48 136/60 07/27/16 00:00 96.3 58 20 136/60 98 Room Air Height (Feet): 5 Height (Inches): 3.00 Weight (Pounds): 160 General Appearance: WD/WN, no acute distress HEENT: normocephalic, atraumatic, anicteric, mucous membranes moist, PERRL Respiratory/Chest: chest wall non-tender, lungs clear, normal breath sounds, no respiratory distress, no accessory muscle use Cardiovascular: normal peripheral pulses, normal rate, regular rhythm, no gallop/murmur, no JVD Abdomen: normal bowel sounds, soft, non tender, no organomegaly, non distended , no mass, no scars Extremities: no cyanosis, no clubbing Microbiology Date/Time Source Procedure Growth Status 07/24/16 23:45 Abdomen Gram Stain - Final Resulted 07/24/16 23:45 Wound Culture - Preliminary Staphylococcus Aureus - Mrsa Resulted Laboratory Tests Test 07/27/16 10:51 Urine Eosinophils None seen Current Medications Medications (Trade) Dose Ordered Sig/Stephany Route PRN Reason Start Time Stop Time Status Last Admin Dose Admin Acetaminophen (Tylenol) 650 mg Q4H PRN RECTAL Mild Pain (Pain Scale 1-3) 07/24/16 19:15 08/23/16 19:14 Amlodipine Besylate (Norvasc) 10 mg DAILY GT 07/25/16 09:00 08/24/16 08:59 Aztreonam/Dextrose (Azactam/D5W) 55 ml @ 110 mls/hr Q8HR IVPB 07/24/16 22:00 07/31/16 21:59 07/27/16 13:42 Clonidine HCl (Catapres TTS-2) 1 patch QWEEK TDERMAL 07/24/16 20:00 08/23/16 19:59 07/24/16 20:01 Clonidine HCl 0.1 mg 0.1 mg Q4H PRN GT bp over 170 syst 07/24/16 16:00 08/23/16 15:59 Dextrose (D5W 1000ml) 1,000 ml @ 50 mls/hr Q20H IV 07/26/16 10:00 08/25/16 09:59 07/27/16 06:14 Dextrose 50 ml 50 ml STAT PRN IV Hypoglycemia 07/24/16 20:30 08/23/16 20:29 Nitroglycerin (Nitro-Bid) 1 inch Q6HR TOPIC 07/27/16 12:00 08/26/16 11:59 07/27/16 18:22 Mercedes Gamez M.D. Jul 27, 2016 19:58
[2016-07-27 20:00] VITALS: BP 141/74
[2016-07-27 23:55] VITALS: BP 163/66
[2016-07-28] VITALS (8 sets, daily range): BP systolic 122–179; BP diastolic 51–78
[2016-07-28] MEDS: Nitroglycerin 2% oint pkt TOPIC SCH ×2 (00:19→05:31)
[2016-07-28] MEDS: Aztreonam Inj 0.5 GM in D5W 55 ML IVPB SCH ×3 (05:31→21:30)
[2016-07-28 07:09] LABS: BASOPHILS % (AUTO) 1.7 % (0.0-2.0); EOSINOPHILS % (AUTO) 3.6 % (0.0-3.0); LYMPHOCYTES % (AUTO) 14.1 % (20.0-45.0); MEAN CORPUSCULAR HEMOGLOBIN 31.7 PG (27.0-31.0); MEAN CORPUSCULAR HGB CONC 32.6 G/DL (32.0-36.0); MEAN CORPUSCULAR VOLUME 97 FL (80-99); MEAN PLATELET VOLUME 12.7 FL (6.5-10.1); MONOCYTES % (AUTO) 8.9 % (1.0-10.0); NEUTROPHILS % (AUTO) 71.7 % (45.0-75.0); PLATELET COUNT 168 K/UL (150-450); RED BLOOD COUNT 3.42 M/UL (4.20-5.40); RED CELL DISTRIBUTION WIDTH 13.3 % (11.6-14.8); WHITE BLOOD COUNT 6.2 K/UL (4.8-10.8)
[2016-07-28 07:11] LABS: ALANINE AMINOTRANSFERASE 17 U/L (3-33); ALBUMIN/GLOBULIN RATIO 1.3 (1.0-2.7); ANION GAP 16 (5-15); ASPARTATE AMINO TRANSFERASE 27 U/L (5-40); CARBON DIOXIDE 22 mEQ/L (20-30); CHLORIDE 107 mEQ/L (98-107); CREATININE 1.9 mg/dL (0.5-0.9); HEMOLYSIS 7; MAGNESIUM 2.2 mg/dL (1.7-2.5); POTASSIUM 2.9 mEQ/L (3.4-4.9); SODIUM 145 mEQ/L (135-145); TOTAL PROTEIN 6.1 g/dL (6.6-8.7)
[2016-07-28] MEDS ORDERED: NS 550ML IV ONE (07:50)
--- NOTE | 2016-07-28 07:54 | General Progress Note ---
Assessment/Plan Assessment/Plan Assessment - OBS - Dysphagia - failed swallow - HTN - DM - Azotemia - slightly better - anemia - hypokalemia - No family, next of kin, or DPOA available for formal consent. Based on the fact that patient had a PEG before being admitted (PEG fell out and hole closed , not allowing bedside replacement), it is logical to proceed with replacement to maintain prior level of care. PEG urgently needed to avoid further demise and since pt has not eaten for days. Recommendations - NPO - IVF - Needs PEG on urgent basis to avoid malnutrition and demise. Will proceed with MD consent - Replace KCL - monitor H&H Subjective Allergies: Coded Allergies: DORIPENEM (Verified Allergy, Severe, 03/06/15) PENICILLINS (Verified Allergy, Unknown, 06/22/13) Subjective confused no events overnight awake and non verbal lower K and H&H noted Objective Last 24 Hour Vital Signs Date Time Temp Pulse Resp B/P Pulse Ox O2 Delivery O2 Flow Rate FiO2 07/28/16 05:31 160/66 07/28/16 04:00 98.0 90 20 122/51 97 Room Air 07/28/16 00:19 163/66 07/27/16 23:55 96.8 60 20 163/66 99 Room Air 07/27/16 20:00 70 18 141/74 97 Room Air 07/27/16 18:22 146/93 07/27/16 15:59 97.6 65 19 146/93 97 Room Air 07/27/16 13:40 143/70 07/27/16 12:15 97.6 64 19 143/70 97 Room Air 07/27/16 09:00 58 93/53 07/27/16 08:15 97.7 58 21 93/53 97 Room Air Intake and Output 07/27/16 07/28/16 19:00 07:00 Intake Total 600 ml 555 ml Output Total 525 ml 475 ml Balance 75 ml 80 ml IV Total 600 ml 555 ml Output Urine Total 525 ml 475 ml Laboratory Tests 07/27/16 10:51: Urine Eosinophils None seen 07/28/16 04:50: White Blood Count 6.2, Red Blood Count 3.42L, Hemoglobin 10.9L, Hematocrit 33.3L , Mean Corpuscular Volume 97, Mean Corpuscular Hemoglobin 31.7H, Mean Corpuscular Hemoglobin Concent 32.6, Red Cell Distribution Width 13.3, Platelet Count 168, Mean Platelet Volume 12.7H, Neutrophils (%) (Auto) 71.7, Lymphocytes (%) (Auto) 14.1L, Monocytes (%) (Auto) 8.9, Eosinophils (%) (Auto) 3.6H, Basophils (%) (Auto) 1.7, Sodium Level 145, Potassium Level 2.9L, Chloride Level 107, Carbon Dioxide Level 22, Anion Gap 16H, Blood Urea Nitrogen 43H, Creatinine 1.9H, Estimat Glomerular Filtration Rate , Glucose Level 150H, Calcium Level 8.0L, Phosphorus Level 3.0, Magnesium Level 2.2, Total Bilirubin 0.5, Aspartate Amino Transf (AST/SGOT) 27, Alanine Aminotransferase (ALT/SGPT) 17, Alkaline Phosphatase 59, Total Protein 6.1L, Albumin 3.5, Globulin 2.6, Albumin/Globulin Ratio 1.3 Height (Feet): 5 Height (Inches): 1.00 Weight (Pounds): 155 Objective Elderly woman NCAT supple CTA RRR Soft ND, GT site closed no edema OBS MARK DELGADO Jul 28, 2016 07:54
[2016-07-28] MEDS ORDERED: Vancomycin 500 MG in D5W 110 ML IVPB ONE (08:00)
[2016-07-28] MEDS ORDERED: Propofol 10mg/ml 20ml IV ONE (08:00)
[2016-07-28] MEDS ORDERED: Lidocaine 1% MPF 10mg/ml 5ml ONE (08:00)
[2016-07-28] MEDS ORDERED: LR 1000ml ONE (08:00)
--- NOTE | 2016-07-28 08:15 | Pre-Procedure Note/Attestation ---
Pre-Procedure Note/Attestation Complete Prior to Procedure Planned Procedure: not applicable Procedure Narrative: EGD/PEG Indications for Procedure Pre-Operative Diagnosis: dysphagia Attestation Procedure done on urgent basis. No family or DPOA available for consent. I attest that I re-evaluated the patient just prior to the surgery and that there has been no change in the patient's H&P, except as documented below: MARK DELGADO Jul 28, 2016 08:15
--- NOTE | 2016-07-28 08:17 | Endoscopy Procedure Note ---
Endoscopy Procedure Note Indication for Procedure: dysphagia Procedures Performed: PEG Operative Findings/Diagnosis: PEG placed Specimen: none Pt Tolerated Procedure Well: Yes Estimated Blood Loss: none Anesthesiologist: see notes Anesthesia: MAC Medication Given: see anesthesia record Implant(s) used?: No 50 yrs or older w/o bx or poly: Not Applicable 10yrs. F/U not recommended: Not Applicable If not recommended, why?: MARK DELGADO Jul 28, 2016 08:17
--- NOTE | 2016-07-28 08:18 | Brief Operative Note ---
Immediate Post Operative Note Operative Note Chief Complaint: dysphagia Pre-op Diagnosis: dysphagia Procedure: PEG Post-op Diagnosis: dysphagia Surgeon: arsenio Anesthesiologist: see report Anesthesia: MAC Specimen: yes Complications: none Condition: stable Estimated Blood Loss: none Drains: none Implant(s) used?: No MARK DELGADO Jul 28, 2016 08:18
--- NOTE | 2016-07-28 08:30 | Immediate Post-Op Evaluation ---
Immediate Post-Op Evalulation Immediate Post-Op Evalulation Procedure: PEG placement Date of Evaluation: Jul 28, 2016 Time of Evaluation: 08:29 IV Fluids: 200 Blood Pressure Systolic: 149 Blood Pressure Diastolic: 70 Pulse Rate: 65 Respiratory Rate: 14 O2 Sat by Pulse Oximetry: 99 Temperature (Fahrenheit): 96.5 Nausea: No Vomiting: No Complications none Patient Status: awake Hydration Status: adequate Drug: vanc Given Within 1 Hr of Incision: Yes Time Given: 08:00 ABIGAIL BOLANOS CRNA Jul 28, 2016 08:29
--- NOTE | 2016-07-28 08:32 | Anethesia Preoperative Eval ---
Anesthesia Pre-op PMH/ROS General Date of Evaluation: Jul 28, 2016 Time of Evaluation: 08:00 Anesthesiologist: lowell ASA Score: ASA 3 Mallampati Score Class I : Soft palate, uvula, fauces, pillars visible Class II: Soft palate, uvula, fauces visible Class III: Soft palate, base of uvula visible Class IV: Only hard plate visible Mallampati Classification: Class III Surgeon: damari Diagnosis: PEG malfunction Surgical Procedure: PEG Placement Anesthesia History: none Family History: no anesthesia problems Allergies: Coded Allergies: DORIPENEM (Verified Allergy, Severe, 03/06/15) PENICILLINS (Verified Allergy, Unknown, 06/22/13) Medications: see eMAR Past Medical History Cardiovascular: Reports: HTN Pulmonary: Denies: COPD, GURPREET, asthma, other Gastrointestinal/Genitourinary: Reports: other - ARF Neurologic/Psychiatric: Reports: dementia Endocrine: Reports: DM HEENT: Denies: MARSHALL (L), MARSHALL (R), cataract (L), cataract (R), glaucoma, other Hematology/Immune: Reports: anemia Musculoskeletal/Integumentary: Denies: DDD, DJD, OA, RA, edema, other PSxH Narrative: unown Anesthesia Pre-op Phys. Exam Physician Exam Last Vital Signs Date Time Temp Pulse Resp B/P Pulse Ox O2 Delivery O2 Flow Rate FiO2 07/28/16 05:31 160/66 07/28/16 04:00 98.0 90 20 97 Room Air Constitutional: NAD Neurologic: CN 2-12 intact Cardiovascular: RRR Respiratory: CTA Gastrointestinal: S/NT/ND Airway Exam Mallampati Classification 3 Mallampati Score: Class III MO: limited ROM: limited Dentures: no lower, no upper Anesthesia Pre-op A/P Labs Hematology Test 07/28/16 04:50 White Blood Count 6.2 K/UL (4.8-10.8) Red Blood Count 3.42 M/UL (4.20-5.40) L Hemoglobin 10.9 G/DL (12.0-16.0) L Hematocrit 33.3 % (37.0-47.0) L Mean Corpuscular Volume 97 FL (80-99) Mean Corpuscular Hemoglobin 31.7 PG (27.0-31.0) H Mean Corpuscular Hemoglobin Concent 32.6 G/DL (32.0-36.0) Red Cell Distribution Width 13.3 % (11.6-14.8) Platelet Count 168 K/UL (150-450) Mean Platelet Volume 12.7 FL (6.5-10.1) H Neutrophils (%) (Auto) 71.7 % (45.0-75.0) Lymphocytes (%) (Auto) 14.1 % (20.0-45.0) L Monocytes (%) (Auto) 8.9 % (1.0-10.0) Eosinophils (%) (Auto) 3.6 % (0.0-3.0) H Basophils (%) (Auto) 1.7 % (0.0-2.0) Chemistry Test 07/28/16 04:50 Sodium Level 145 mEQ/L (135-145) Potassium Level 2.9 mEQ/L (3.4-4.9) L Chloride Level 107 mEQ/L (98-107) Carbon Dioxide Level 22 mEQ/L (20-30) Anion Gap 16 (5-15) H Blood Urea Nitrogen 43 mg/dL (7-23) H Creatinine 1.9 mg/dL (0.5-0.9) H Estimat Glomerular Filtration Rate mL/min (>60) Glucose Level 150 mg/dL (74-106) H Calcium Level 8.0 mg/dL (8.6-10.2) L Phosphorus Level 3.0 mg/dL (2.5-4.8) Magnesium Level 2.2 mg/dL (1.7-2.5) Total Bilirubin 0.5 mg/dL (0.0-1.2) Aspartate Amino Transf (AST/SGOT) 27 U/L (5-40) Alanine Aminotransferase (ALT/SGPT) 17 U/L (3-33) Alkaline Phosphatase 59 U/L (35-104) Total Protein 6.1 g/dL (6.6-8.7) L Albumin 3.5 g/dL (3.5-5.2) Globulin 2.6 g/dL Albumin/Globulin Ratio 1.3 (1.0-2.7) Studies Pre-op Studies: EKG - sr Risk Assessment & Plan Plan: mac Status Change Before Surgery: No Pre-Antibiotics Drug: vanc Time Given: 08:00 ABIGAIL BOLANOS CRNA Jul 28, 2016 08:32
[2016-07-28] MEDS ORDERED: KCl 10% 40mEq/30ml liquid NG ONE (09:00)
--- NOTE | 2016-07-28 10:50 | General Progress Note ---
Assessment/Plan Status: stable Status Narrative GT is in now- Cr down to 1.9 Assessment/Plan status: -Acute renal failure/ Underlying CKD -Dehydration -PEG malfunction -HTN (hypertension) -DM (diabetes mellitus) Plan: Hydrate- with D5 start meds via GT for bp control parameters for NTP Monitor renal parameters- Subjective ROS Limited/Unobtainable: No Constitutional: Reports: malaise Allergies: Coded Allergies: DORIPENEM (Verified Allergy, Severe, 03/06/15) PENICILLINS (Verified Allergy, Unknown, 06/22/13) Objective Last 24 Hour Vital Signs Date Time Temp Pulse Resp B/P Pulse Ox O2 Delivery O2 Flow Rate FiO2 07/28/16 09:03 53 179/78 07/28/16 08:41 96.9 53 18 179/78 99 Room Air 07/28/16 08:30 54 16 176/70 97 Room Air 07/28/16 08:29 65 14 99 07/28/16 08:25 52 17 149/63 100 Simple Mask 6.0 07/28/16 08:20 97.0 53 16 142/65 100 Simple Mask 6.0 07/28/16 05:31 160/66 07/28/16 04:00 98.0 90 20 122/51 97 Room Air 07/28/16 00:19 163/66 07/27/16 23:55 96.8 60 20 163/66 99 Room Air 07/27/16 20:00 70 18 141/74 97 Room Air 07/27/16 18:22 146/93 07/27/16 15:59 97.6 65 19 146/93 97 Room Air 07/27/16 13:40 143/70 07/27/16 12:15 97.6 64 19 143/70 97 Room Air Intake and Output 07/27/16 07/28/16 19:00 07:00 Intake Total 600 ml 555 ml Output Total 525 ml 475 ml Balance 75 ml 80 ml IV Total 600 ml 555 ml Output Urine Total 525 ml 475 ml Laboratory Tests 07/27/16 10:51: Urine Eosinophils None seen 07/28/16 04:50: White Blood Count 6.2, Red Blood Count 3.42L, Hemoglobin 10.9L, Hematocrit 33.3L , Mean Corpuscular Volume 97, Mean Corpuscular Hemoglobin 31.7H, Mean Corpuscular Hemoglobin Concent 32.6, Red Cell Distribution Width 13.3, Platelet Count 168, Mean Platelet Volume 12.7H, Neutrophils (%) (Auto) 71.7, Lymphocytes (%) (Auto) 14.1L, Monocytes (%) (Auto) 8.9, Eosinophils (%) (Auto) 3.6H, Basophils (%) (Auto) 1.7, Sodium Level 145, Potassium Level 2.9L, Chloride Level 107, Carbon Dioxide Level 22, Anion Gap 16H, Blood Urea Nitrogen 43H, Creatinine 1.9H, Estimat Glomerular Filtration Rate , Glucose Level 150H, Calcium Level 8.0L, Phosphorus Level 3.0, Magnesium Level 2.2, Total Bilirubin 0.5, Aspartate Amino Transf (AST/SGOT) 27, Alanine Aminotransferase (ALT/SGPT) 17, Alkaline Phosphatase 59, Total Protein 6.1L, Albumin 3.5, Globulin 2.6, Albumin/Globulin Ratio 1.3 Height (Feet): 5 Height (Inches): 1.00 Weight (Pounds): 155 General Appearance: no apparent distress Abdomen: other - GT is in now Objective PE not changed DINA MONAHAN Jul 28, 2016 10:50
--- NOTE | 2016-07-28 11:30 | General Progress Note ---
Assessment/Plan Problem List: (1) HTN (hypertension) ICD Codes: I10 - HTN (hypertension) SNOMED: 09627582 (2) Anemia ICD Codes: D64.9 - Anemia, unspecified SNOMED: 571306745 (3) Renal insufficiency (4) UTI (urinary tract infection) ICD Codes: N39.0 - Urinary tract infection, site not specified SNOMED: 86735300 (5) DM (diabetes mellitus) ICD Codes: E11.9 - DM (diabetes mellitus) SNOMED: 32121091 (6) Malfunction of percutaneous endoscopic gastrostomy (PEG) tube ICD Codes: K94.23 - Malfunction of percutaneous endoscopic gastrostomy (PEG) tube SNOMED: 860830986 (7) Acute renal failure ICD Codes: N17.9 - Acute renal failure SNOMED: 02251244 Qualifiers: Qualified Codes: N17.9 - Acute kidney failure, unspecified (8) UTI (urinary tract infection) ICD Codes: N39.0 - Urinary tract infection, site not specified SNOMED: 40137598 Qualifiers: Qualified Codes: N39.0 - Urinary tract infection, site not specified (9) Sepsis ICD Codes: A41.9 - Sepsis, unspecified organism SNOMED: 01360604 Status: progressing Assessment/Plan s/p exchange of peg afebrile vitas stable arf and dehydration Subjective ROS Limited/Unobtainable: Yes Constitutional: Reports: no symptoms Allergies: Coded Allergies: DORIPENEM (Verified Allergy, Severe, 03/06/15) PENICILLINS (Verified Allergy, Unknown, 06/22/13) Objective Last 24 Hour Vital Signs Date Time Temp Pulse Resp B/P Pulse Ox O2 Delivery O2 Flow Rate FiO2 07/28/16 11:08 98.4 55 18 150/59 98 Room Air 07/28/16 09:03 53 179/78 07/28/16 08:41 96.9 53 18 179/78 99 Room Air 07/28/16 08:30 54 16 176/70 97 Room Air 07/28/16 08:29 65 14 99 07/28/16 08:25 52 17 149/63 100 Simple Mask 6.0 07/28/16 08:20 97.0 53 16 142/65 100 Simple Mask 6.0 07/28/16 05:31 160/66 07/28/16 04:00 98.0 90 20 122/51 97 Room Air 07/28/16 00:19 163/66 07/27/16 23:55 96.8 60 20 163/66 99 Room Air 07/27/16 20:00 70 18 141/74 97 Room Air 07/27/16 18:22 146/93 07/27/16 15:59 97.6 65 19 146/93 97 Room Air 07/27/16 13:40 143/70 07/27/16 12:15 97.6 64 19 143/70 97 Room Air Intake and Output 07/27/16 07/28/16 19:00 07:00 Intake Total 600 ml 555 ml Output Total 525 ml 475 ml Balance 75 ml 80 ml IV Total 600 ml 555 ml Output Urine Total 525 ml 475 ml Laboratory Tests 07/28/16 04:50: White Blood Count 6.2, Red Blood Count 3.42L, Hemoglobin 10.9L, Hematocrit 33.3L , Mean Corpuscular Volume 97, Mean Corpuscular Hemoglobin 31.7H, Mean Corpuscular Hemoglobin Concent 32.6, Red Cell Distribution Width 13.3, Platelet Count 168, Mean Platelet Volume 12.7H, Neutrophils (%) (Auto) 71.7, Lymphocytes (%) (Auto) 14.1L, Monocytes (%) (Auto) 8.9, Eosinophils (%) (Auto) 3.6H, Basophils (%) (Auto) 1.7, Sodium Level 145, Potassium Level 2.9L, Chloride Level 107, Carbon Dioxide Level 22, Anion Gap 16H, Blood Urea Nitrogen 43H, Creatinine 1.9H, Estimat Glomerular Filtration Rate , Glucose Level 150H, Calcium Level 8.0L, Phosphorus Level 3.0, Magnesium Level 2.2, Total Bilirubin 0.5, Aspartate Amino Transf (AST/SGOT) 27, Alanine Aminotransferase (ALT/SGPT) 17, Alkaline Phosphatase 59, Total Protein 6.1L, Albumin 3.5, Globulin 2.6, Albumin/Globulin Ratio 1.3 Height (Feet): 5 Height (Inches): 1.00 Weight (Pounds): 155 EENT: PERRL/EOMI Neck: supple Cardiovascular: normal rate Respiratory/Chest: lungs clear Abdomen: soft Jah Rosas MD Jul 28, 2016 11:30
[2016-07-28] MEDS: Aspirin Baby 81mg GT SCH (12:25)
[2016-07-28] MEDS: HydrALAZINE 25mg tab GT SCH ×2 (14:18→21:30)
--- NOTE | 2016-07-28 15:18 | Procedure Note ---
DATE OF PROCEDURE: 07/28/2016 SURGEON: Michael Self M.D. PROCEDURE: Upper-gastrointestinal endoscopy with gastrostomy tube placement. ANESTHESIA: The please see the separate anesthesiologist's notes for details. PRE-ENDOSCOPIC DIAGNOSES: Dysphagia and a dislodged gastrostomy catheter. POST-ENDOSCOPIC DIAGNOSES: Dysphagia and a dislodged gastrostomy catheter, status post gastrostomy tube placement. DESCRIPTION OF PROCEDURE: The procedure was felt to be needed on an urgent basis because the patient's gastrostomy tube had fallen out and could not be replaced. The patient had not been cleared for several days and was at risk of severe malnutrition. No family members or durable [id number] was available. The patient had previously had a gastrostomy tube and tis had fallen out just prior to admission and it had to be replaced to prevent malnutrition. The patient was then sedated in supine position. A diagnostic upper endoscope was introduced through the oropharynx and advanced to the duodenum. The endoscope was then gradually withdrawn and the mucosa was examined carefully. Examination did not reveal any abnormalities. A location was identified by palpation and transillumination techniques. The outside skin was sterilized and anesthetized and a trocar needle was used to place the gastrostomy tube using the standard pull technique. The patient tolerated the procedure well and was left to Recovery in good condition. COMPLICATIONS: None. RECOMMENDATIONS: 1. Observe overnight. 2. Resume tube feedings tomorrow. Michael Self M.D. DR: MARGO JOB#: [id number] CC:
--- NOTE | 2016-07-28 17:54 | Infectious Diseases Prog Note ---
Assessment/Plan Problems: (1) UTI (urinary tract infection) Assessment & Plan: with MDR E.coli , continue aztreonam for 5 days (2) Malfunction of percutaneous endoscopic gastrostomy (PEG) tube Assessment & Plan: S/P replacement today by GI, continue local skin care. (3) Acute renal failure Assessment & Plan: suspect dehydration related, continue IVF, avoid nephrotoxic meds, nephrology is following (4) DM (diabetes mellitus) Assessment & Plan: recommend tight glycemic control to keep blood glucose between 80-120 (5) Renal insufficiency Assessment & Plan: monitor renal function , avoid nephrotoxic meds Subjective ROS Limited/Unobtainable: Yes Allergies: Coded Allergies: DORIPENEM (Verified Allergy, Severe, 03/06/15) PENICILLINS (Verified Allergy, Unknown, 06/22/13) Subjective she is demented, lying in bed, but alert, trying to pull out G tube, sitter at the bedside , not in distress. Objective Vital Signs Last 24 Hour Vital Signs Date Time Temp Pulse Resp B/P Pulse Ox O2 Delivery O2 Flow Rate FiO2 07/28/16 15:48 96.4 72 20 158/71 99 Room Air 07/28/16 14:18 150/59 07/28/16 11:08 98.4 55 18 150/59 98 Room Air 07/28/16 09:03 53 179/78 07/28/16 08:41 96.9 53 18 179/78 99 Room Air 07/28/16 08:30 54 16 176/70 97 Room Air 07/28/16 08:29 65 14 99 07/28/16 08:25 52 17 149/63 100 Simple Mask 6.0 07/28/16 08:20 97.0 53 16 142/65 100 Simple Mask 6.0 07/28/16 05:31 160/66 07/28/16 04:00 98.0 90 20 122/51 97 Room Air 07/28/16 00:19 163/66 07/27/16 23:55 96.8 60 20 163/66 99 Room Air 07/27/16 20:00 70 18 141/74 97 Room Air 07/27/16 18:22 146/93 Height (Feet): 5 Height (Inches): 1.00 Weight (Pounds): 155 General Appearance: WD/WN, no acute distress HEENT: normocephalic, atraumatic, anicteric, mucous membranes moist Respiratory/Chest: chest wall non-tender, lungs clear, normal breath sounds, no respiratory distress, no accessory muscle use Cardiovascular: normal peripheral pulses, normal rate, regular rhythm, no gallop/murmur, no JVD Abdomen: normal bowel sounds, soft, non tender, no organomegaly, non distended , no mass, no scars, other - G tube site looks good Extremities: no cyanosis, no clubbing, pedal pulses normal Laboratory Tests Test 07/28/16 04:50 White Blood Count 6.2 K/UL (4.8-10.8) Red Blood Count 3.42 M/UL (4.20-5.40) L Hemoglobin 10.9 G/DL (12.0-16.0) L Hematocrit 33.3 % (37.0-47.0) L Mean Corpuscular Volume 97 FL (80-99) Mean Corpuscular Hemoglobin 31.7 PG (27.0-31.0) H Mean Corpuscular Hemoglobin Concent 32.6 G/DL (32.0-36.0) Red Cell Distribution Width 13.3 % (11.6-14.8) Platelet Count 168 K/UL (150-450) Mean Platelet Volume 12.7 FL (6.5-10.1) H Neutrophils (%) (Auto) 71.7 % (45.0-75.0) Lymphocytes (%) (Auto) 14.1 % (20.0-45.0) L Monocytes (%) (Auto) 8.9 % (1.0-10.0) Eosinophils (%) (Auto) 3.6 % (0.0-3.0) H Basophils (%) (Auto) 1.7 % (0.0-2.0) Sodium Level 145 mEQ/L (135-145) Potassium Level 2.9 mEQ/L (3.4-4.9) L Chloride Level 107 mEQ/L (98-107) Carbon Dioxide Level 22 mEQ/L (20-30) Anion Gap 16 (5-15) H Blood Urea Nitrogen 43 mg/dL (7-23) H Creatinine 1.9 mg/dL (0.5-0.9) H Estimat Glomerular Filtration Rate mL/min (>60) Glucose Level 150 mg/dL (74-106) H Calcium Level 8.0 mg/dL (8.6-10.2) L Phosphorus Level 3.0 mg/dL (2.5-4.8) Magnesium Level 2.2 mg/dL (1.7-2.5) Total Bilirubin 0.5 mg/dL (0.0-1.2) Aspartate Amino Transf (AST/SGOT) 27 U/L (5-40) Alanine Aminotransferase (ALT/SGPT) 17 U/L (3-33) Alkaline Phosphatase 59 U/L (35-104) Total Protein 6.1 g/dL (6.6-8.7) L Albumin 3.5 g/dL (3.5-5.2) Globulin 2.6 g/dL Albumin/Globulin Ratio 1.3 (1.0-2.7) Current Medications Medications (Trade) Dose Ordered Sig/Stephany Route PRN Reason Start Time Stop Time Status Last Admin Dose Admin Acetaminophen (Tylenol) 650 mg Q4H PRN RECTAL Mild Pain (Pain Scale 1-3) 07/24/16 19:15 08/23/16 19:14 Amlodipine Besylate 10 mg 10 mg DAILY GT 07/25/16 09:00 08/24/16 08:59 07/28/16 09:03 Aspirin (ASA) 81 mg DAILY GT 07/28/16 12:00 08/27/16 11:59 07/28/16 12:25 Atorvastatin Calcium (Lipitor) 20 mg BEDTIME GT 07/28/16 21:00 08/27/16 20:59 Aztreonam/Dextrose (Azactam/D5W) 55 ml @ 110 mls/hr Q8HR IVPB 07/24/16 22:00 07/31/16 21:59 07/28/16 14:18 Dextrose (D5W 1000ml) 1,000 ml @ 75 mls/hr [id number] IV 07/28/16 11:00 08/27/16 10:59 07/28/16 11:02 Dextrose 50 ml 50 ml STAT PRN IV Hypoglycemia 07/24/16 20:30 08/23/16 20:29 Hydralazine HCl (Apresoline) 25 mg Q8HR GT 07/28/16 14:00 08/27/16 13:59 07/28/16 14:18 Olanzapine (ZyPREXA) 5 mg BEDTIME ORAL 07/28/16 21:00 08/27/16 20:59 Ranitidine HCl (Zantac) 150 mg ACBREAKFAST GT 07/28/16 12:00 08/27/16 11:59 07/28/16 12:25 Mercedes Gamez M.D. Jul 28, 2016 17:54
--- NOTE | 2016-07-28 20:19 | Consultation ---
DATE OF CONSULTATION: 07/24/2016 CONSULTING PHYSICIAN: Devin Story M.D. HISTORY OF PRESENT ILLNESS: The patient is a 81-year-old female with a past medical history of hypertension, CHF, atrial fibrillation, COPD, GERD, and dementia due to poor feeding. The patient has been admitted for medical stabilization of UTI and altered mental status. Psychiatry was consulted. The patient presents with altered mental status. During the evaluation, the patient presents with waxing and waning consciousness, impairment in concentration, memory, and attention, unable to provide any history. The history was mainly obtained from the medical records and staff. PAST PSYCHIATRIC HISTORY: Diagnosed with dementia and behavior issues, anxiety and agitation. PAST MEDICAL HISTORY: Hypertension, congestive heart failure, atrial fibrillation, chronic obstructive pulmonary disease, and gastroesophageal reflux disease. PAST SURGICAL HISTORY: G-tube placement. ALLERGIES: Doripenem and penicillin. SUBSTANCE USE HISTORY: No history of illicit drugs or alcohol. MENTAL STATUS EXAMINATION: The patient is confused and disoriented. Mood is anxious. Affect is constricted. Congruent mood. Thought process is concrete. Thought content, no suicidal or homicidal ideation. ASSESSMENT: AXIS I Dementia with behavior disturbance. AXIS II Deferred. AXIS III As above. AXIS IV Moderate. AXIS V Global assessment of functioning is 25. PLAN: 1. The patient will be started on olanzapine 2.5 mg at bedtime. 2. Provide the patient with supportive therapy and reality orientation. 3. We will continue to follow and readjust the medications. Devin Story M.D. DR: CLAUDE JOB#: [id number] CC:
[2016-07-28] MEDS: OLANZapine 2.5mg tab ORAL SCH (20:59)
[2016-07-28] MEDS: Atorvastatin 20mg tab GT SCH (20:59)
[2016-07-28] MEDS ORDERED: OLANZapine 2.5mg tab ORAL SCH (21:00)
[2016-07-29 04:00] VITALS: BP 132/56
[2016-07-29] MEDS: Aztreonam Inj 0.5 GM in D5W 55 ML IVPB SCH ×3 (05:22→22:24)
[2016-07-29] MEDS: HydrALAZINE 25mg tab GT SCH ×3 (05:54→22:00)
[2016-07-29 07:23] LABS: ANION GAP 17 (5-15); CALCIUM 7.9 mg/dL (8.6-10.2); CARBON DIOXIDE 16 mEQ/L (20-30); CHLORIDE 105 mEQ/L (98-107); CREATININE 1.7 mg/dL (0.5-0.9); HEMOLYSIS 17; POTASSIUM 3.5 mEQ/L (3.4-4.9); SODIUM 138 mEQ/L (135-145)
[2016-07-29 08:00] VITALS: BP 157/60
[2016-07-29] MEDS: Aspirin Baby 81mg GT SCH (09:45)
[2016-07-29 12:00] VITALS: BP 115/53
--- NOTE | 2016-07-29 12:34 | General Progress Note ---
Assessment/Plan Problem List: (1) HTN (hypertension) ICD Codes: I10 - HTN (hypertension) SNOMED: 67734731 (2) Anemia ICD Codes: D64.9 - Anemia, unspecified SNOMED: 709172839 (3) Renal insufficiency (4) UTI (urinary tract infection) ICD Codes: N39.0 - Urinary tract infection, site not specified SNOMED: 28461660 (5) DM (diabetes mellitus) ICD Codes: E11.9 - DM (diabetes mellitus) SNOMED: 95319697 (6) Malfunction of percutaneous endoscopic gastrostomy (PEG) tube ICD Codes: K94.23 - Malfunction of percutaneous endoscopic gastrostomy (PEG) tube SNOMED: 248409051 (7) Acute renal failure ICD Codes: N17.9 - Acute renal failure SNOMED: 14160720 Qualifiers: Qualified Codes: N17.9 - Acute kidney failure, unspecified (8) UTI (urinary tract infection) ICD Codes: N39.0 - Urinary tract infection, site not specified SNOMED: 49980537 Qualifiers: Qualified Codes: N39.0 - Urinary tract infection, site not specified (9) Sepsis ICD Codes: A41.9 - Sepsis, unspecified organism SNOMED: 15171243 Status: progressing Assessment/Plan s/p exchange of peg moniter to make sure pt is tolerating peg feeding afebrile arf check lytes Subjective ROS Limited/Unobtainable: Yes Constitutional: Reports: no symptoms Allergies: Coded Allergies: DORIPENEM (Verified Allergy, Severe, 03/06/15) PENICILLINS (Verified Allergy, Unknown, 06/22/13) Objective Last 24 Hour Vital Signs Date Time Temp Pulse Resp B/P Pulse Ox O2 Delivery O2 Flow Rate FiO2 07/29/16 09:46 65 157/60 07/29/16 08:00 97.9 65 18 157/60 99 Room Air 07/29/16 05:54 132/56 07/29/16 04:00 98.4 66 18 132/56 99 Room Air 07/28/16 21:30 146/70 07/28/16 20:00 98.1 74 16 146/70 100 Room Air 07/28/16 15:48 96.4 72 20 158/71 99 Room Air 07/28/16 14:18 150/59 Intake and Output 07/28/16 07/29/16 19:00 07:00 Intake Total 780 ml 1085 ml Output Total 200 ml 900 ml Balance 580 ml 185 ml IV Total 780 ml 1085 ml Output Urine Total 200 ml 900 ml Estimated Blood Loss 0 ml Laboratory Tests 07/29/16 05:10: Sodium Level 138, Potassium Level 3.5, Chloride Level 105, Carbon Dioxide Level 16L, Anion Gap 17H, Blood Urea Nitrogen 37H, Creatinine 1.7H, Estimat Glomerular Filtration Rate , Glucose Level 161H, Calcium Level 7.9L Height (Feet): 5 Height (Inches): 1.00 Weight (Pounds): 155 EENT: PERRL/EOMI Neck: supple Cardiovascular: normal rate Respiratory/Chest: normal breath sounds Abdomen: soft Jah Rosas MD Jul 29, 2016 12:34
--- NOTE | 2016-07-29 13:41 | General Progress Note ---
Assessment/Plan Status: stable Assessment/Plan status: -Acute renal failure/ Underlying CKD -Dehydration -PEG malfunction -HTN (hypertension) -DM (diabetes mellitus) Plan: Hydrate- with D5 start meds via GT for bp control parameters for NTP Monitor renal parameters- ? DC planning? Subjective ROS Limited/Unobtainable: No Constitutional: Reports: malaise Allergies: Coded Allergies: DORIPENEM (Verified Allergy, Severe, 03/06/15) PENICILLINS (Verified Allergy, Unknown, 06/22/13) Objective Last 24 Hour Vital Signs Date Time Temp Pulse Resp B/P Pulse Ox O2 Delivery O2 Flow Rate FiO2 07/29/16 12:00 97.4 56 18 115/53 99 Room Air 07/29/16 09:46 65 157/60 07/29/16 08:00 97.9 65 18 157/60 99 Room Air 07/29/16 05:54 132/56 07/29/16 04:00 98.4 66 18 132/56 99 Room Air 07/28/16 21:30 146/70 07/28/16 20:00 98.1 74 16 146/70 100 Room Air 07/28/16 15:48 96.4 72 20 158/71 99 Room Air 07/28/16 14:18 150/59 Intake and Output 07/28/16 07/29/16 19:00 07:00 Intake Total 780 ml 1085 ml Output Total 200 ml 900 ml Balance 580 ml 185 ml IV Total 780 ml 1085 ml Output Urine Total 200 ml 900 ml Estimated Blood Loss 0 ml Laboratory Tests 07/29/16 05:10: Sodium Level 138, Potassium Level 3.5, Chloride Level 105, Carbon Dioxide Level 16L, Anion Gap 17H, Blood Urea Nitrogen 37H, Creatinine 1.7H, Estimat Glomerular Filtration Rate , Glucose Level 161H, Calcium Level 7.9L Height (Feet): 5 Height (Inches): 1.00 Weight (Pounds): 155 General Appearance: no apparent distress Objective PE not changed DINA MONAHAN Jul 29, 2016 13:41
[2016-07-29 14:25] LABS: HEMOLYSIS 22; IRON 25 ug/dL (37-145); TOTAL IRON BINDING CAPACITY 201 ug/dL (250-400)
[2016-07-29 14:35] LABS: FERRITIN 373 ng/mL (13-150)
[2016-07-29 16:30] VITALS: BP 148/82
--- NOTE | 2016-07-29 17:15 | Infectious Diseases Prog Note ---
Assessment/Plan Problems: (1) UTI (urinary tract infection) Assessment & Plan: with MDR E.coli , continue aztreonam for 5 days (2) Malfunction of percutaneous endoscopic gastrostomy (PEG) tube Assessment & Plan: S/P replacement by GI, continue local skin care. (3) Acute renal failure Assessment & Plan: suspect dehydration related, continue IVF, avoid nephrotoxic meds, nephrology is following (4) DM (diabetes mellitus) Assessment & Plan: recommend tight glycemic control to keep blood glucose between 80-120 (5) Renal insufficiency Assessment & Plan: monitor renal function , avoid nephrotoxic meds Subjective ROS Limited/Unobtainable: Yes Allergies: Coded Allergies: DORIPENEM (Verified Allergy, Severe, 03/06/15) PENICILLINS (Verified Allergy, Unknown, 06/22/13) Subjective she is demented, lying in bed, but alert, trying to pull out G tube, sitter at the bedside , not in distress. Objective Vital Signs Last 24 Hour Vital Signs Date Time Temp Pulse Resp B/P Pulse Ox O2 Delivery O2 Flow Rate FiO2 07/29/16 14:29 115/53 07/29/16 12:00 97.4 56 18 115/53 99 Room Air 07/29/16 09:46 65 157/60 07/29/16 08:00 97.9 65 18 157/60 99 Room Air 07/29/16 05:54 132/56 07/29/16 04:00 98.4 66 18 132/56 99 Room Air 07/28/16 21:30 146/70 07/28/16 20:00 98.1 74 16 146/70 100 Room Air Height (Feet): 5 Height (Inches): 1.00 Weight (Pounds): 155 General Appearance: WD/WN, no acute distress HEENT: normocephalic, atraumatic, anicteric, mucous membranes moist Respiratory/Chest: chest wall non-tender, lungs clear, normal breath sounds, no respiratory distress, no accessory muscle use Cardiovascular: normal peripheral pulses, normal rate, regular rhythm, no gallop/murmur, no JVD Abdomen: normal bowel sounds, soft, non tender, no organomegaly, non distended , no mass Extremities: no cyanosis, no clubbing Skin: no rash, no lesions Laboratory Tests Test 07/29/16 05:10 Sodium Level 138 mEQ/L (135-145) Potassium Level 3.5 mEQ/L (3.4-4.9) Chloride Level 105 mEQ/L (98-107) Carbon Dioxide Level 16 mEQ/L (20-30) L Anion Gap 17 (5-15) H Blood Urea Nitrogen 37 mg/dL (7-23) H Creatinine 1.7 mg/dL (0.5-0.9) H Estimat Glomerular Filtration Rate mL/min (>60) Glucose Level 161 mg/dL (74-106) H Calcium Level 7.9 mg/dL (8.6-10.2) L Iron Level 25 ug/dL (37-145) L Total Iron Binding Capacity 201 ug/dL (250-400) L Percent Iron Saturation 12 % (15-50) L Unsaturated Iron Binding 176 ug/dL (112-346) Ferritin 373 ng/mL (13-150) H Vitamin B12 Level 1843 pg/mL (211-946) H Folate Pending Current Medications Medications (Trade) Dose Ordered Sig/Stephany Route PRN Reason Start Time Stop Time Status Last Admin Dose Admin Acetaminophen (Tylenol) 650 mg Q4H PRN RECTAL Mild Pain (Pain Scale 1-3) 07/24/16 19:15 08/23/16 19:14 Amlodipine Besylate 10 mg 10 mg DAILY GT 07/25/16 09:00 08/24/16 08:59 07/29/16 09:46 Aspirin (ASA) 81 mg DAILY GT 07/28/16 12:00 08/27/16 11:59 07/29/16 09:45 Atorvastatin Calcium (Lipitor) 20 mg BEDTIME GT 07/28/16 21:00 08/27/16 20:59 07/28/16 20:59 Aztreonam/Dextrose (Azactam/D5W) 55 ml @ 110 mls/hr Q8HR IVPB 07/24/16 22:00 07/29/16 23:59 07/29/16 14:29 Dextrose (D5W 1000ml) 1,000 ml @ 75 mls/hr [id number] IV 07/28/16 11:00 08/27/16 10:59 07/29/16 14:00 Dextrose 50 ml 50 ml STAT PRN IV Hypoglycemia 07/24/16 20:30 08/23/16 20:29 Hydralazine HCl (Apresoline) 25 mg Q8HR GT 07/28/16 14:00 08/27/16 13:59 07/29/16 14:29 Olanzapine (ZyPREXA) 5 mg BEDTIME ORAL 07/28/16 21:00 08/27/16 20:59 07/28/16 20:59 Ranitidine HCl (Zantac) 150 mg ACBREAKFAST GT 07/28/16 12:00 08/27/16 11:59 07/29/16 05:54 Mercedes Gamez M.D. Jul 29, 2016 17:15
[2016-07-29 18:01] LABS: BASOPHILS % (AUTO) 0.7 % (0.0-2.0); EOSINOPHILS % (AUTO) 1.9 % (0.0-3.0); LYMPHOCYTES % (AUTO) 12.2 % (20.0-45.0); MEAN CORPUSCULAR HEMOGLOBIN 32.2 PG (27.0-31.0); MEAN CORPUSCULAR HGB CONC 33.2 G/DL (32.0-36.0); MEAN CORPUSCULAR VOLUME 97 FL (80-99); MONOCYTES % (AUTO) 6.1 % (1.0-10.0); PLATELET COUNT 155 K/UL (150-450); RED BLOOD COUNT 3.51 M/UL (4.20-5.40); RED CELL DISTRIBUTION WIDTH 13.2 % (11.6-14.8); WHITE BLOOD COUNT 13.5 K/UL (4.8-10.8)
[2016-07-29 19:00] VITALS: BP 109/58
[2016-07-29 20:01] LABS: LYMPHOCYTES % (MANUAL) 19 % (20-45); NEUTROPHILS % (MANUAL) 79 % (45-75); TOTAL CELLS COUNTED 100
[2016-07-29 20:02] LABS: BAND NEUTROPHILS % (MANUAL) 0 % (0-8); BASOPHILS % (MANUAL) 0 % (0-2); EOSINOPHILS % (MANUAL) 0 % (0-3); PLATELET ESTIMATE ADEQUATE; PLATELET MORPHOLOGY NORMAL
[2016-07-29 20:03] LABS: PATH BLOOD SMEAR/OMC SENT TO PATHOLOGIST
--- NOTE | 2016-07-29 20:30 | Cardiology Report ---
APPROVED REPORT EKG Measurement Heart [id number] Normal sinus rhythm Possible Left atrial enlargement Inferior infarct, age undetermined Cannot rule out Anterior infarct, age undetermined Abnormal ECG
[2016-07-29] MEDS: OLANZapine 2.5mg tab ORAL SCH (22:24)
[2016-07-29] MEDS: Atorvastatin 20mg tab GT SCH (22:24)
--- NOTE | 2016-07-29 23:00 | General Progress Note ---
Assessment/Plan Assessment/Plan Assessment - OBS - Dysphagia - failed swallow - HTN - DM - Azotemia - slightly better - anemia - hypokalemia - s/p PEG Recommendations - IVF - Begin TF - Elevate HOB - monitor H&H Subjective Allergies: Coded Allergies: DORIPENEM (Verified Allergy, Severe, 03/06/15) PENICILLINS (Verified Allergy, Unknown, 06/22/13) Subjective confused no events overnight awake and non verbal Objective Last 24 Hour Vital Signs Date Time Temp Pulse Resp B/P Pulse Ox O2 Delivery O2 Flow Rate FiO2 07/29/16 22:00 109/58 07/29/16 19:00 96.4 75 18 109/58 98 Room Air 07/29/16 16:30 98.1 71 18 148/82 97 Room Air 07/29/16 14:29 115/53 07/29/16 12:00 97.4 56 18 115/53 99 Room Air 07/29/16 09:46 65 157/60 07/29/16 08:00 97.9 65 18 157/60 99 Room Air 07/29/16 05:54 132/56 07/29/16 04:00 98.4 66 18 132/56 99 Room Air Intake and Output 07/28/16 07/29/16 19:00 07:00 Intake Total 780 ml 1085 ml Output Total 200 ml 900 ml Balance 580 ml 185 ml IV Total 780 ml 1085 ml Output Urine Total 200 ml 900 ml Estimated Blood Loss 0 ml Laboratory Tests 07/29/16 05:10: Sodium Level 138, Potassium Level 3.5, Chloride Level 105, Carbon Dioxide Level 16L, Anion Gap 17H, Blood Urea Nitrogen 37H, Creatinine 1.7H, Estimat Glomerular Filtration Rate , Glucose Level 161H, Calcium Level 7.9L, Iron Level 25L, Total Iron Binding Capacity 201L, Percent Iron Saturation 12L, Unsaturated Iron Binding 176, Ferritin 373H, Vitamin B12 Level 1843H, Folate [Pending] 07/29/16 17:25: White Blood Count 13.5H, Red Blood Count 3.51L, Hemoglobin 11.3L, Hematocrit 34.0L, Mean Corpuscular Volume 97, Mean Corpuscular Hemoglobin 32.2H, Mean Corpuscular Hemoglobin Concent 33.2, Red Cell Distribution Width 13.2, Platelet Count 155, Mean Platelet Volume 15.0H, Neutrophils (%) (Auto) 79.0H, Lymphocytes (%) (Auto) 12.2L, Monocytes (%) (Auto) 6.1, Eosinophils (%) (Auto) 1.9, Basophils (%) (Auto) 0.7, Differential Total Cells Counted 100, Neutrophils % (Manual) 79H, Lymphocytes % (Manual) 19L, Monocytes % (Manual) 2, Eosinophils % (Manual) 0, Basophils % (Manual) 0, Band Neutrophils 0, Platelet Estimate Adequate, Platelet Morphology Normal, Red Blood Cell Morphology Normal , Erythrocyte Sedimentation Rate 85H Height (Feet): 5 Height (Inches): 1.00 Weight (Pounds): 155 Objective Elderly woman NCAT supple CTA RRR Soft ND, GT site closed no edema OBS MARK DELGADO Jul 29, 2016 23:00
[2016-07-29 23:52] VITALS: BP 118/58
[2016-07-30] VITALS (7 sets, daily range): BP systolic 114–163; BP diastolic 56–77
[2016-07-30] MEDS: HydrALAZINE 25mg tab GT SCH ×3 (05:25→22:16)
[2016-07-30] MEDS: Aspirin Baby 81mg GT SCH (08:19)
--- NOTE | 2016-07-30 09:10 | General Progress Note ---
Assessment/Plan Assessment/Plan Assessment: # Leukocytosis - potentially 2/2 infection, stable 10-15k # Anemia 2/2 chronic disease # Decreased H/H rule out GI bleed # Dysphagia has failed swallow eval s/p PEG # HTN # DM # Azotemia - slightly better # hypokalemia Recommendations: - Monitor counts - Peripheral smear reviewed - Anemia w/u reviewed as well - Does not require iron - F/U on GI recs - DW Staff Thank you, Femi Hearn MD Subjective Date patient seen: Jul 29, 2016 Allergies: Coded Allergies: DORIPENEM (Verified Allergy, Severe, 03/06/15) PENICILLINS (Verified Allergy, Unknown, 06/22/13) Subjective in bed, minimally interactive, was sleeping this am, per prior report, generally same, no hematochezia or hematemesis Objective Last 24 Hour Vital Signs Date Time Temp Pulse Resp B/P Pulse Ox O2 Delivery O2 Flow Rate FiO2 07/30/16 08:20 75 114/60 07/30/16 08:00 98.1 70 19 155/67 98 Room Air 07/30/16 05:25 114/60 07/30/16 04:00 97.9 75 18 114/60 100 Room Air 07/29/16 23:52 97.7 79 20 118/58 100 Room Air 07/29/16 22:00 109/58 07/29/16 19:00 96.4 75 18 109/58 98 Room Air 07/29/16 16:30 98.1 71 18 148/82 97 Room Air 07/29/16 14:29 115/53 07/29/16 12:00 97.4 56 18 115/53 99 Room Air 07/29/16 09:46 65 157/60 Intake and Output 07/29/16 07/30/16 19:00 07:00 Intake Total 880 ml 1325 ml Output Total 200 ml 450 ml Balance 680 ml 875 ml Free Water 200 ml IV Total 880 ml 825 ml Tube Feeding 300 ml Output Urine Total 200 ml 450 ml Laboratory Tests 07/29/16 17:25: White Blood Count 13.5H, Red Blood Count 3.51L, Hemoglobin 11.3L, Hematocrit 34.0L, Mean Corpuscular Volume 97, Mean Corpuscular Hemoglobin 32.2H, Mean Corpuscular Hemoglobin Concent 33.2, Red Cell Distribution Width 13.2, Platelet Count 155, Mean Platelet Volume 15.0H, Neutrophils (%) (Auto) 79.0H, Lymphocytes (%) (Auto) 12.2L, Monocytes (%) (Auto) 6.1, Eosinophils (%) (Auto) 1.9, Basophils (%) (Auto) 0.7, Differential Total Cells Counted 100, Neutrophils % (Manual) 79H, Lymphocytes % (Manual) 19L, Monocytes % (Manual) 2, Eosinophils % (Manual) 0, Basophils % (Manual) 0, Band Neutrophils 0, Platelet Estimate Adequate, Platelet Morphology Normal, Red Blood Cell Morphology Normal , Erythrocyte Sedimentation Rate 85H Height (Feet): 5 Height (Inches): 1.00 Weight (Pounds): 155 General Appearance: no apparent distress EENT: TMs normal Neck: normal alignment Cardiovascular: normal rate Respiratory/Chest: lungs clear Abdomen: normal bowel sounds Extremities: non-tender Edema: 1+ Leg (L), 1+ Leg (R) Edema: mild edema Neurologic: alert Skin: warm/dry Femi Hearn Jul 30, 2016 09:10
--- NOTE | 2016-07-30 10:22 | General Progress Note ---
Assessment/Plan Problem List: (1) HTN (hypertension) ICD Codes: I10 - HTN (hypertension) SNOMED: 63463749 (2) Anemia ICD Codes: D64.9 - Anemia, unspecified SNOMED: 563534322 (3) Renal insufficiency (4) UTI (urinary tract infection) ICD Codes: N39.0 - Urinary tract infection, site not specified SNOMED: 78003330 (5) DM (diabetes mellitus) ICD Codes: E11.9 - DM (diabetes mellitus) SNOMED: 14256824 (6) Malfunction of percutaneous endoscopic gastrostomy (PEG) tube ICD Codes: K94.23 - Malfunction of percutaneous endoscopic gastrostomy (PEG) tube SNOMED: 346312268 (7) Acute renal failure ICD Codes: N17.9 - Acute renal failure SNOMED: 81171507 Qualifiers: Qualified Codes: N17.9 - Acute kidney failure, unspecified (8) UTI (urinary tract infection) ICD Codes: N39.0 - Urinary tract infection, site not specified SNOMED: 57665373 Qualifiers: Qualified Codes: N39.0 - Urinary tract infection, site not specified (9) Sepsis ICD Codes: A41.9 - Sepsis, unspecified organism SNOMED: 08426654 Status: progressing Assessment/Plan s/p exchange of peg moniter to make sure pt is tolerating still has residuals so not ready for dc Subjective ROS Limited/Unobtainable: Yes Allergies: Coded Allergies: DORIPENEM (Verified Allergy, Severe, 03/06/15) PENICILLINS (Verified Allergy, Unknown, 06/22/13) Objective Last 24 Hour Vital Signs Date Time Temp Pulse Resp B/P Pulse Ox O2 Delivery O2 Flow Rate FiO2 07/30/16 08:20 75 114/60 07/30/16 08:00 98.1 70 19 155/67 98 Room Air 07/30/16 05:25 114/60 07/30/16 04:00 97.9 75 18 114/60 100 Room Air 07/29/16 23:52 97.7 79 20 118/58 100 Room Air 07/29/16 22:00 109/58 07/29/16 19:00 96.4 75 18 109/58 98 Room Air 07/29/16 16:30 98.1 71 18 148/82 97 Room Air 07/29/16 14:29 115/53 07/29/16 12:00 97.4 56 18 115/53 99 Room Air Intake and Output 07/29/16 07/30/16 19:00 07:00 Intake Total 880 ml 1325 ml Output Total 200 ml 450 ml Balance 680 ml 875 ml Free Water 200 ml IV Total 880 ml 825 ml Tube Feeding 300 ml Output Urine Total 200 ml 450 ml Laboratory Tests 07/29/16 17:25: White Blood Count 13.5H, Red Blood Count 3.51L, Hemoglobin 11.3L, Hematocrit 34.0L, Mean Corpuscular Volume 97, Mean Corpuscular Hemoglobin 32.2H, Mean Corpuscular Hemoglobin Concent 33.2, Red Cell Distribution Width 13.2, Platelet Count 155, Mean Platelet Volume 15.0H, Neutrophils (%) (Auto) 79.0H, Lymphocytes (%) (Auto) 12.2L, Monocytes (%) (Auto) 6.1, Eosinophils (%) (Auto) 1.9, Basophils (%) (Auto) 0.7, Differential Total Cells Counted 100, Neutrophils % (Manual) 79H, Lymphocytes % (Manual) 19L, Monocytes % (Manual) 2, Eosinophils % (Manual) 0, Basophils % (Manual) 0, Band Neutrophils 0, Platelet Estimate Adequate, Platelet Morphology Normal, Red Blood Cell Morphology Normal , Erythrocyte Sedimentation Rate 85H Height (Feet): 5 Height (Inches): 1.00 Weight (Pounds): 155 EENT: PERRL/EOMI Neck: supple Cardiovascular: normal rate Respiratory/Chest: lungs clear Abdomen: soft Jah Rosas MD Jul 30, 2016 10:22
--- NOTE | 2016-07-30 11:01 | General Progress Note ---
Assessment/Plan Status: unchanged Assessment/Plan status: -Acute renal failure/ Underlying CKD -Dehydration -PEG malfunction -HTN (hypertension) -DM (diabetes mellitus) Plan: start reglan for residual no labs today start meds via GT for bp control parameters for NTP Monitor renal parameters- ? DC planning? Subjective ROS Limited/Unobtainable: No Constitutional: Reports: malaise Allergies: Coded Allergies: DORIPENEM (Verified Allergy, Severe, 03/06/15) PENICILLINS (Verified Allergy, Unknown, 06/22/13) Objective Last 24 Hour Vital Signs Date Time Temp Pulse Resp B/P Pulse Ox O2 Delivery O2 Flow Rate FiO2 07/30/16 08:20 75 114/60 07/30/16 08:00 98.1 70 19 155/67 98 Room Air 07/30/16 05:25 114/60 07/30/16 04:00 97.9 75 18 114/60 100 Room Air 07/29/16 23:52 97.7 79 20 118/58 100 Room Air 07/29/16 22:00 109/58 07/29/16 19:00 96.4 75 18 109/58 98 Room Air 07/29/16 16:30 98.1 71 18 148/82 97 Room Air 07/29/16 14:29 115/53 07/29/16 12:00 97.4 56 18 115/53 99 Room Air Intake and Output 07/29/16 07/30/16 19:00 07:00 Intake Total 880 ml 1325 ml Output Total 200 ml 450 ml Balance 680 ml 875 ml Free Water 200 ml IV Total 880 ml 825 ml Tube Feeding 300 ml Output Urine Total 200 ml 450 ml Laboratory Tests 07/29/16 17:25: White Blood Count 13.5H, Red Blood Count 3.51L, Hemoglobin 11.3L, Hematocrit 34.0L, Mean Corpuscular Volume 97, Mean Corpuscular Hemoglobin 32.2H, Mean Corpuscular Hemoglobin Concent 33.2, Red Cell Distribution Width 13.2, Platelet Count 155, Mean Platelet Volume 15.0H, Neutrophils (%) (Auto) 79.0H, Lymphocytes (%) (Auto) 12.2L, Monocytes (%) (Auto) 6.1, Eosinophils (%) (Auto) 1.9, Basophils (%) (Auto) 0.7, Differential Total Cells Counted 100, Neutrophils % (Manual) 79H, Lymphocytes % (Manual) 19L, Monocytes % (Manual) 2, Eosinophils % (Manual) 0, Basophils % (Manual) 0, Band Neutrophils 0, Platelet Estimate Adequate, Platelet Morphology Normal, Red Blood Cell Morphology Normal , Erythrocyte Sedimentation Rate 85H Height (Feet): 5 Height (Inches): 1.00 Weight (Pounds): 155 General Appearance: no apparent distress Cardiovascular: normal rate Abdomen: soft, other - PEG Objective PE not changed DINA MONAHAN Jul 30, 2016 11:01
[2016-07-30] MEDS: Metoclopramide 10mg/10ml Liq NG SCH ×2 (12:10→17:50)
--- NOTE | 2016-07-30 12:33 | General Progress Note ---
Assessment/Plan Assessment/Plan Assessment: # Leukocytosis - potentially 2/2 infection, stable 10-15k # Anemia 2/2 chronic disease # Decreased H/H rule out GI bleed # Dysphagia has failed swallow eval s/p PEG (and s/p exchange) # HTN # DM # Azotemia - slightly better # hypokalemia Recommendations: - Monitor counts - Peripheral smear reviewed, is wnl - Anemia w/u reviewed - Does not require iron - F/U on GI recs - DW Staff Thank you, Femi Hearn MD Subjective Date patient seen: Jul 30, 2016 Constitutional: Reports: no symptoms HEENT: Reports: no symptoms Cardiovascular: Reports: no symptoms Respiratory: Reports: no symptoms Gastrointestinal/Abdominal: Reports: poor appetite Genitourinary: Reports: no symptoms Neurologic/Psychiatric: Reports: no symptoms Endocrine: Reports: no symptoms Hematologic/Lymphatic: Reports: anemia Allergies: Coded Allergies: DORIPENEM (Verified Allergy, Severe, 03/06/15) PENICILLINS (Verified Allergy, Unknown, 06/22/13) Subjective in bed, minimally interactive, was sleeping this am, per prior report, s/p peg exchange Objective Last 24 Hour Vital Signs Date Time Temp Pulse Resp B/P Pulse Ox O2 Delivery O2 Flow Rate FiO2 07/30/16 12:04 97.3 63 20 150/64 98 Room Air 07/30/16 08:20 75 114/60 07/30/16 08:00 98.1 70 19 155/67 98 Room Air 07/30/16 05:25 114/60 07/30/16 04:00 97.9 75 18 114/60 100 Room Air 07/29/16 23:52 97.7 79 20 118/58 100 Room Air 07/29/16 22:00 109/58 07/29/16 19:00 96.4 75 18 109/58 98 Room Air 07/29/16 16:30 98.1 71 18 148/82 97 Room Air 07/29/16 14:29 115/53 Intake and Output 07/29/16 07/30/16 19:00 07:00 Intake Total 880 ml 1325 ml Output Total 200 ml 450 ml Balance 680 ml 875 ml Free Water 200 ml IV Total 880 ml 825 ml Tube Feeding 300 ml Output Urine Total 200 ml 450 ml Laboratory Tests 07/29/16 17:25: White Blood Count 13.5H, Red Blood Count 3.51L, Hemoglobin 11.3L, Hematocrit 34.0L, Mean Corpuscular Volume 97, Mean Corpuscular Hemoglobin 32.2H, Mean Corpuscular Hemoglobin Concent 33.2, Red Cell Distribution Width 13.2, Platelet Count 155, Mean Platelet Volume 15.0H, Neutrophils (%) (Auto) 79.0H, Lymphocytes (%) (Auto) 12.2L, Monocytes (%) (Auto) 6.1, Eosinophils (%) (Auto) 1.9, Basophils (%) (Auto) 0.7, Differential Total Cells Counted 100, Neutrophils % (Manual) 79H, Lymphocytes % (Manual) 19L, Monocytes % (Manual) 2, Eosinophils % (Manual) 0, Basophils % (Manual) 0, Band Neutrophils 0, Platelet Estimate Adequate, Platelet Morphology Normal, Red Blood Cell Morphology Normal , Erythrocyte Sedimentation Rate 85H Height (Feet): 5 Height (Inches): 1.00 Weight (Pounds): 155 General Appearance: no apparent distress EENT: TMs normal Neck: normal inspection Cardiovascular: regular rhythm Respiratory/Chest: chest wall non-tender Abdomen: non tender Extremities: normal range of motion Edema: 1+ Leg (L), 1+ Leg (R) Edema: mild edema Neurologic: alert Skin: warm/dry Femi Hearn Jul 30, 2016 12:33
--- NOTE | 2016-07-30 17:54 | Infectious Diseases Prog Note ---
Assessment/Plan Problems: (1) UTI (urinary tract infection) Assessment & Plan: with MDR E.coli , received aztreonam for 5 days (2) Malfunction of percutaneous endoscopic gastrostomy (PEG) tube Assessment & Plan: S/P replacement by GI, continue local skin care. (3) Acute renal failure Assessment & Plan: suspect dehydration related, continue IVF, avoid nephrotoxic meds, nephrology is following (4) DM (diabetes mellitus) Assessment & Plan: recommend tight glycemic control to keep blood glucose between 80-120 (5) Renal insufficiency Assessment & Plan: monitor renal function , avoid nephrotoxic meds Subjective ROS Limited/Unobtainable: Yes Allergies: Coded Allergies: DORIPENEM (Verified Allergy, Severe, 03/06/15) PENICILLINS (Verified Allergy, Unknown, 06/22/13) Subjective she is demented, lying in bed, but alert, trying to pull out G tube, sitter at the bedside , not in distress. Objective Vital Signs Last 24 Hour Vital Signs Date Time Temp Pulse Resp B/P Pulse Ox O2 Delivery O2 Flow Rate FiO2 07/30/16 17:38 89 147/69 07/30/16 15:49 98.2 87 22 163/77 99 Room Air 07/30/16 13:12 150/64 07/30/16 12:04 97.3 63 20 150/64 98 Room Air 07/30/16 08:20 75 114/60 07/30/16 08:00 98.1 70 19 155/67 98 Room Air 07/30/16 05:25 114/60 07/30/16 04:00 97.9 75 18 114/60 100 Room Air 07/29/16 23:52 97.7 79 20 118/58 100 Room Air 07/29/16 22:00 109/58 07/29/16 19:00 96.4 75 18 109/58 98 Room Air Height (Feet): 5 Height (Inches): 1.00 Weight (Pounds): 155 General Appearance: WD/WN, no acute distress HEENT: normocephalic, atraumatic, anicteric, mucous membranes moist Respiratory/Chest: chest wall non-tender, lungs clear, normal breath sounds, no respiratory distress, no accessory muscle use Cardiovascular: normal peripheral pulses, normal rate, regular rhythm, no gallop/murmur, no JVD Abdomen: normal bowel sounds, soft, non tender, no organomegaly, non distended , no mass Extremities: no cyanosis, no clubbing Skin: no rash, no lesions Current Medications Medications (Trade) Dose Ordered Sig/Stephany Route PRN Reason Start Time Stop Time Status Last Admin Dose Admin Acetaminophen (Tylenol) 650 mg Q4H PRN RECTAL Mild Pain (Pain Scale 1-3) 07/24/16 19:15 08/23/16 19:14 Amlodipine Besylate (Norvasc) 10 mg DAILY GT 07/25/16 09:00 08/24/16 08:59 07/30/16 08:20 Aspirin (ASA) 81 mg DAILY GT 07/28/16 12:00 08/27/16 11:59 07/30/16 08:19 Atorvastatin Calcium (Lipitor) 20 mg BEDTIME GT 07/28/16 21:00 08/27/16 20:59 07/29/16 22:24 Dextrose (Dextrose 50%) 50 ml STAT PRN IV Hypoglycemia 07/24/16 20:30 08/23/16 20:29 Hydralazine HCl (Apresoline) 25 mg Q8HR GT 07/28/16 14:00 08/27/16 13:59 07/30/16 13:12 Insulin Aspart (NovoLOG) BEFORE MEALS AND HS SUBQ 07/30/16 18:30 08/29/16 18:29 Metoclopramide HCl (Reglan) 5 mg EVERY 6 HOURS NG 07/30/16 12:00 08/29/16 11:59 07/30/16 17:50 Olanzapine (ZyPREXA) 5 mg BEDTIME ORAL 07/28/16 21:00 08/27/16 20:59 07/29/16 22:24 Ranitidine HCl (Zantac) 150 mg ACBREAKFAST GT 07/28/16 12:00 08/27/16 11:59 07/30/16 05:25 Mercedes Gamez M.D. Jul 30, 2016 17:54
[2016-07-30] MEDS ORDERED: NovoLOG Insulin Flexpen SUBQ SCH (18:30)
--- NOTE | 2016-07-30 18:38 | History and Physical Report ---
DATE OF ADMISSION: 07/24/2016 HISTORY OF PRESENT ILLNESS: The patient is a very poor historian, cannot get any reliable history from her. The patient has had in her G-tube. The patient is admitted for dehydration, acute renal failure, UTI, leukocytosis, and nutrition because there in the G-tube . PAST MEDICAL HISTORY: Chronic renal insufficiency, psychosis, dementia, hyperlipidemia, anemia, hypertension, dysphagia, NIDDM, and constipation. PAST SURGICAL HISTORY: G-tube. MEDICATIONS: , Norvasc, aspirin, Lipitor, TriCor, insulin, Tradjenta, Namenda, quinapril, and Senokot. ALLERGIES: Penicillin and doripenem. SOCIAL HISTORY: Unable to obtain. FAMILY HISTORY: Unable to obtain. REVIEW OF SYSTEMS: Unable to obtain. PHYSICAL EXAMINATION: VITAL SIGNS: Temperature 97.2 degrees, pulse 99, and blood pressure 171/88. HEENT: PERRLA. NECK: Supple. No lymphadenopathy. CHEST: Clear to auscultation. GI: Soft, nontender. Does have a G-tube. Abdomen is soft. Positive bowel sounds. EXTREMITIES: Contractures. NEUROLOGIC: Does not follow neurologic exam. Reflexes are equal on both sides. LABORATORY VALUES: WBC 13.7, hemoglobin 12.8, and platelet 205,000. Sodium 147, potassium 3.8, chloride 106, BUN 68, creatinine 2, and glucose 191. ASSESSMENT AND PLAN: 1. Acute renal failure. 2. Dehydration. 3. Leukocytosis. 4. Urinary tract infection. PLAN: I have asked Dr. Gamez, Dr. Hargrove, Dr. Self, and Dr. Story to see the patient with the psychiatric illness and for the above-mentioned diagnosis and treatment. Jah Rosas M.D. DR: Shelia JOB#: [id number] CC:
[2016-07-30] MEDS: NovoLOG Insulin Flexpen SUBQ SCH (19:39)
[2016-07-30] MEDS: Atorvastatin 20mg tab GT SCH (20:52)
[2016-07-30] MEDS: OLANZapine 2.5mg tab ORAL SCH (20:52)
--- NOTE | 2016-07-30 21:59 | General Progress Note ---
Assessment/Plan Assessment/Plan Assessment - OBS - Dysphagia - HTN - DM - Azotemia - anemia - s/p PEG Recommendations - IVF ? - Continue TF - Elevate HOB - monitor H&H Subjective Allergies: Coded Allergies: DORIPENEM (Verified Allergy, Severe, 03/06/15) PENICILLINS (Verified Allergy, Unknown, 06/22/13) Subjective confused awake and non verbal increased residuals noted this am Objective Last 24 Hour Vital Signs Date Time Temp Pulse Resp B/P Pulse Ox O2 Delivery O2 Flow Rate FiO2 07/30/16 19:45 98.2 88 22 139/65 97 Room Air 07/30/16 17:38 89 147/69 07/30/16 15:49 98.2 87 22 163/77 99 Room Air 07/30/16 13:12 150/64 07/30/16 12:04 97.3 63 20 150/64 98 Room Air 07/30/16 08:20 75 114/60 07/30/16 08:00 98.1 70 19 155/67 98 Room Air 07/30/16 05:25 114/60 07/30/16 04:00 97.9 75 18 114/60 100 Room Air 07/29/16 23:52 97.7 79 20 118/58 100 Room Air 07/29/16 22:00 109/58 Intake and Output 07/29/16 07/30/16 19:00 07:00 Intake Total 880 ml 1325 ml Output Total 200 ml 450 ml Balance 680 ml 875 ml Free Water 200 ml IV Total 880 ml 825 ml Tube Feeding 300 ml Output Urine Total 200 ml 450 ml Height (Feet): 5 Height (Inches): 1.00 Weight (Pounds): 155 Objective Elderly woman NCAT supple CTA RRR Soft ND, GT site closed no edema OBS MARK DELGADO Jul 30, 2016 21:59
--- NOTE | 2016-07-30 22:38 | Progress Note ---
SUBJECTIVE: The patient was found in bed, sleeping. There is no behavior issues. The patient is unable to be engaged and answers the questions. Disoriented. MENTAL STATUS EXAMINATION: The patient is confused, disoriented, not able to be engaged. Mood is neutral. Affect is flat, congruent with mood. Thought process, there is a paucity of thought content. ASSESSMENT: 1. Delirium. 2. Cognitive impairment. PLAN: 1. The patient will be continued on olanzapine 5 mg at bedtime. 2. We will continue to follow and readjust the medications. Devin Story M.D. DR: AZEEM JOB#: [id number] CC:
[2016-07-31 00:11] VITALS: BP 139/62
[2016-07-31] MEDS: Metoclopramide 10mg/10ml Liq NG SCH ×4 (00:28→18:58)
[2016-07-31] MEDS: NovoLOG Insulin Flexpen SUBQ SCH ×4 (00:32→19:03)
[2016-07-31 04:00] VITALS: BP 153/62
[2016-07-31] MEDS: HydrALAZINE 25mg tab GT SCH ×3 (06:48→22:47)
[2016-07-31 07:16] LABS: BASOPHILS % (AUTO) 0.4 % (0.0-2.0); EOSINOPHILS % (AUTO) 0.3 % (0.0-3.0); LYMPHOCYTES % (AUTO) 7.9 % (20.0-45.0); MEAN CORPUSCULAR HEMOGLOBIN 32.5 PG (27.0-31.0); MEAN CORPUSCULAR HGB CONC 34.4 G/DL (32.0-36.0); MEAN CORPUSCULAR VOLUME 94 FL (80-99); MEAN PLATELET VOLUME 15.4 FL (6.5-10.1); MONOCYTES % (AUTO) 8.7 % (1.0-10.0); NEUTROPHILS % (AUTO) 82.8 % (45.0-75.0); PLATELET COUNT 143 K/UL (150-450); RED BLOOD COUNT 3.24 M/UL (4.20-5.40); WHITE BLOOD COUNT 9.9 K/UL (4.8-10.8)
[2016-07-31 07:18] LABS: ALANINE AMINOTRANSFERASE 12 U/L (3-33); ALBUMIN/GLOBULIN RATIO 0.8 (1.0-2.7); ANION GAP 16 (5-15); ASPARTATE AMINO TRANSFERASE 16 U/L (5-40); CARBON DIOXIDE 17 mEQ/L (20-30); CHLORIDE 100 mEQ/L (98-107); CREATININE 1.9 mg/dL (0.5-0.9); HEMOLYSIS 1; MAGNESIUM 2.3 mg/dL (1.7-2.5); PHOSPHORUS 2.6 mg/dL (2.5-4.8); POTASSIUM 3.3 mEQ/L (3.4-4.9); SODIUM 133 mEQ/L (135-145); TOTAL PROTEIN 5.6 g/dL (6.6-8.7)
[2016-07-31 08:14] VITALS: BP 139/67
[2016-07-31] MEDS: Aspirin Baby 81mg GT SCH (08:41)
--- NOTE | 2016-07-31 10:27 | Diagnostic Imaging Report ---
Indications: DYSPHAGIA Technique: Patient ingested multiple substances under the supervision of speech pathology. Video fluoroscopic recording performed. Total fluoroscopy time 358 seconds. Total dose area product 0.51717 mGycm2 Comparison: none Findings: There is early pooling of thin liquid barium. Trace supraglottic laryngeal penetration is demonstrated. No hans aspiration. Good clearing with swallowing. Is trace penetration with nectar thick liquid barium. No aspiration. With ingestion of honey thick liquid barium,, barium pur?e, no aspiration or penetration is demonstrated. No aspiration or penetration demonstrated Impression: Positive for penetration of thin and nectar thick liquid barium Please refer to speech pathology report for more detailed analysis
--- NOTE | 2016-07-31 10:35 | General Progress Note ---
Assessment/Plan Status: unchanged Assessment/Plan status: -Acute renal failure/ Underlying CKD -Dehydration -PEG malfunction -HTN (hypertension) -DM (diabetes mellitus) Plan: start IV and KCL start reglan for residual start meds via GT for bp control Monitor renal parameters- Per GI Subjective ROS Limited/Unobtainable: No Constitutional: Reports: malaise, other - vomited once, weakness Allergies: Coded Allergies: DORIPENEM (Verified Allergy, Severe, 03/06/15) PENICILLINS (Verified Allergy, Unknown, 06/22/13) Objective Last 24 Hour Vital Signs Date Time Temp Pulse Resp B/P Pulse Ox O2 Delivery O2 Flow Rate FiO2 07/31/16 08:41 70 139/67 07/31/16 08:14 97.8 70 18 139/67 95 Room Air 07/31/16 06:48 153/62 07/31/16 04:00 98.1 72 22 153/62 98 Room Air 07/31/16 00:11 98.2 84 24 139/62 96 Room Air 07/30/16 22:16 121/56 07/30/16 22:00 83 121/56 07/30/16 19:45 98.2 88 22 139/65 97 Room Air 07/30/16 17:38 89 147/69 07/30/16 15:49 98.2 87 22 163/77 99 Room Air 07/30/16 13:12 150/64 07/30/16 12:04 97.3 63 20 150/64 98 Room Air Intake and Output 07/30/16 07/31/16 19:00 07:00 Intake Total 975 ml 720 ml Output Total 225 ml 775 ml Balance 750 ml -55 ml Free Water 150 ml 180 ml IV Total 225 ml Tube Feeding 600 ml 540 ml Output Urine Total 225 ml 775 ml # Bowel Movements 6 5 Laboratory Tests 07/31/16 05:25: White Blood Count 9.9, Red Blood Count 3.24L, Hemoglobin 10.5L, Hematocrit 30.6L , Mean Corpuscular Volume 94, Mean Corpuscular Hemoglobin 32.5H, Mean Corpuscular Hemoglobin Concent 34.4, Red Cell Distribution Width 13.0, Platelet Count 143L, Mean Platelet Volume 15.4H, Neutrophils (%) (Auto) 82.8H, Lymphocytes (%) (Auto) 7.9L, Monocytes (%) (Auto) 8.7, Eosinophils (%) (Auto) 0.3, Basophils (%) (Auto) 0.4, Sodium Level 133L, Potassium Level 3.3L, Chloride Level 100, Carbon Dioxide Level 17L, Anion Gap 16H, Blood Urea Nitrogen 46H, Creatinine 1.9H, Estimat Glomerular Filtration Rate , Glucose Level 202H, Hemoglobin A1c 6.4H, Calcium Level 8.0L, Phosphorus Level 2.6, Magnesium Level 2.3, Total Bilirubin 0.4, Aspartate Amino Transf (AST/SGOT) 16, Alanine Aminotransferase (ALT/SGPT) 12, Alkaline Phosphatase 87, Total Protein 5.6L, Albumin 2.6L, Globulin 3.0, Albumin/Globulin Ratio 0.8L Height (Feet): 5 Height (Inches): 1.00 Weight (Pounds): 155 Neck: stiff neck Cardiovascular: normal rate Respiratory/Chest: decreased breath sounds Abdomen: distended - - mild Objective PE not changed DINA MONAHAN Jul 31, 2016 10:35
--- NOTE | 2016-07-31 10:51 | General Progress Note ---
Assessment/Plan Problem List: (1) HTN (hypertension) ICD Codes: I10 - HTN (hypertension) SNOMED: 20952977 (2) Anemia ICD Codes: D64.9 - Anemia, unspecified SNOMED: 653510513 (3) Renal insufficiency (4) UTI (urinary tract infection) ICD Codes: N39.0 - Urinary tract infection, site not specified SNOMED: 52206549 (5) DM (diabetes mellitus) ICD Codes: E11.9 - DM (diabetes mellitus) SNOMED: 55659862 (6) Malfunction of percutaneous endoscopic gastrostomy (PEG) tube ICD Codes: K94.23 - Malfunction of percutaneous endoscopic gastrostomy (PEG) tube SNOMED: 888154063 (7) Acute renal failure ICD Codes: N17.9 - Acute renal failure SNOMED: 60281080 Qualifiers: Qualified Codes: N17.9 - Acute kidney failure, unspecified (8) UTI (urinary tract infection) ICD Codes: N39.0 - Urinary tract infection, site not specified SNOMED: 85468880 Qualifiers: Qualified Codes: N39.0 - Urinary tract infection, site not specified (9) Sepsis ICD Codes: A41.9 - Sepsis, unspecified organism SNOMED: 64419980 Status: progressing Assessment/Plan dc to snf if ok w gi sp change of peg afebrile reviewed chart and labs Subjective ROS Limited/Unobtainable: Yes Allergies: Coded Allergies: DORIPENEM (Verified Allergy, Severe, 03/06/15) PENICILLINS (Verified Allergy, Unknown, 06/22/13) Objective Last 24 Hour Vital Signs Date Time Temp Pulse Resp B/P Pulse Ox O2 Delivery O2 Flow Rate FiO2 07/31/16 08:41 70 139/67 07/31/16 08:14 97.8 70 18 139/67 95 Room Air 07/31/16 06:48 153/62 07/31/16 04:00 98.1 72 22 153/62 98 Room Air 07/31/16 00:11 98.2 84 24 139/62 96 Room Air 07/30/16 22:16 121/56 07/30/16 22:00 83 121/56 07/30/16 19:45 98.2 88 22 139/65 97 Room Air 07/30/16 17:38 89 147/69 07/30/16 15:49 98.2 87 22 163/77 99 Room Air 07/30/16 13:12 150/64 07/30/16 12:04 97.3 63 20 150/64 98 Room Air Intake and Output 07/30/16 07/31/16 19:00 07:00 Intake Total 975 ml 780 ml Output Total 225 ml 775 ml Balance 750 ml 5 ml Free Water 150 ml 180 ml IV Total 225 ml Tube Feeding 600 ml 600 ml Output Urine Total 225 ml 775 ml # Bowel Movements 6 5 Laboratory Tests 07/31/16 05:25: White Blood Count 9.9, Red Blood Count 3.24L, Hemoglobin 10.5L, Hematocrit 30.6L , Mean Corpuscular Volume 94, Mean Corpuscular Hemoglobin 32.5H, Mean Corpuscular Hemoglobin Concent 34.4, Red Cell Distribution Width 13.0, Platelet Count 143L, Mean Platelet Volume 15.4H, Neutrophils (%) (Auto) 82.8H, Lymphocytes (%) (Auto) 7.9L, Monocytes (%) (Auto) 8.7, Eosinophils (%) (Auto) 0.3, Basophils (%) (Auto) 0.4, Sodium Level 133L, Potassium Level 3.3L, Chloride Level 100, Carbon Dioxide Level 17L, Anion Gap 16H, Blood Urea Nitrogen 46H, Creatinine 1.9H, Estimat Glomerular Filtration Rate , Glucose Level 202H, Hemoglobin A1c 6.4H, Calcium Level 8.0L, Phosphorus Level 2.6, Magnesium Level 2.3, Total Bilirubin 0.4, Aspartate Amino Transf (AST/SGOT) 16, Alanine Aminotransferase (ALT/SGPT) 12, Alkaline Phosphatase 87, Total Protein 5.6L, Albumin 2.6L, Globulin 3.0, Albumin/Globulin Ratio 0.8L Height (Feet): 5 Height (Inches): 1.00 Weight (Pounds): 155 General Appearance: confused Cardiovascular: normal rate Respiratory/Chest: lungs clear Abdomen: soft Jah Rosas MD Jul 31, 2016 10:51
[2016-07-31] MEDS ORDERED: NS w/KCl 20mEq 1,000 ML IV SCH (11:00)
[2016-07-31 11:45] VITALS: BP 122/55
--- NOTE | 2016-07-31 12:25 | Diagnostic Imaging Report ---
Indication: VOMITING Technique: Supine view of the abdomen Comparison: 03/18/2016 Findings: Antrostomy projects in the epigastric region. Bowel contrast, probably from recent swallowing study, seen within the distal colon. Bowel gas pattern is unremarkable. Linear opacity in the right lower quadrant may represent previously ingested contrast within the appendix. A Rodriguez catheter is demonstrated Impression: No acute process. Findings as noted
--- NOTE | 2016-07-31 15:26 | General Progress Note ---
Assessment/Plan Assessment/Plan Assessment: # Leukocytosis - potentially 2/2 infection, stable 10-15k # Anemia 2/2 chronic disease # Thrombocytopenia 2/2 underlying infection # Dysphagia has failed swallow eval s/p PEG (and s/p exchange) # HTN # DM # Azotemia - slightly better # hypokalemia Recommendations: - Monitor counts - Peripheral smear reviewed, is wnl - Anemia w/u has been reviewed - Does not require iron - F/U on GI recs - DW Staff Thank you, Femi Hearn MD Subjective Constitutional: Reports: no symptoms HEENT: Reports: no symptoms Cardiovascular: Reports: no symptoms Respiratory: Reports: no symptoms Gastrointestinal/Abdominal: Reports: no symptoms Genitourinary: Reports: no symptoms Neurologic/Psychiatric: Reports: no symptoms Endocrine: Reports: no symptoms Hematologic/Lymphatic: Reports: anemia Allergies: Coded Allergies: DORIPENEM (Verified Allergy, Severe, 03/06/15) PENICILLINS (Verified Allergy, Unknown, 06/22/13) Subjective in bed, minimally interactive, was sleeping, s/p peg exchange Objective Last 24 Hour Vital Signs Date Time Temp Pulse Resp B/P Pulse Ox O2 Delivery O2 Flow Rate FiO2 07/31/16 13:28 122/55 07/31/16 11:45 98.2 69 18 122/55 98 Room Air 07/31/16 08:41 70 139/67 07/31/16 08:14 97.8 70 18 139/67 95 Room Air 07/31/16 06:48 153/62 07/31/16 04:00 98.1 72 22 153/62 98 Room Air 07/31/16 00:11 98.2 84 24 139/62 96 Room Air 07/30/16 22:16 121/56 07/30/16 22:00 83 121/56 07/30/16 19:45 98.2 88 22 139/65 97 Room Air 07/30/16 17:38 89 147/69 07/30/16 15:49 98.2 87 22 163/77 99 Room Air Intake and Output 07/30/16 07/31/16 19:00 07:00 Intake Total 975 ml 780 ml Output Total 225 ml 775 ml Balance 750 ml 5 ml Free Water 150 ml 180 ml IV Total 225 ml Tube Feeding 600 ml 600 ml Output Urine Total 225 ml 775 ml # Bowel Movements 6 5 Laboratory Tests 07/31/16 05:25: White Blood Count 9.9, Red Blood Count 3.24L, Hemoglobin 10.5L, Hematocrit 30.6L , Mean Corpuscular Volume 94, Mean Corpuscular Hemoglobin 32.5H, Mean Corpuscular Hemoglobin Concent 34.4, Red Cell Distribution Width 13.0, Platelet Count 143L, Mean Platelet Volume 15.4H, Neutrophils (%) (Auto) 82.8H, Lymphocytes (%) (Auto) 7.9L, Monocytes (%) (Auto) 8.7, Eosinophils (%) (Auto) 0.3, Basophils (%) (Auto) 0.4, Sodium Level 133L, Potassium Level 3.3L, Chloride Level 100, Carbon Dioxide Level 17L, Anion Gap 16H, Blood Urea Nitrogen 46H, Creatinine 1.9H, Estimat Glomerular Filtration Rate , Glucose Level 202H, Hemoglobin A1c 6.4H, Calcium Level 8.0L, Phosphorus Level 2.6, Magnesium Level 2.3, Total Bilirubin 0.4, Aspartate Amino Transf (AST/SGOT) 16, Alanine Aminotransferase (ALT/SGPT) 12, Alkaline Phosphatase 87, Total Protein 5.6L, Albumin 2.6L, Globulin 3.0, Albumin/Globulin Ratio 0.8L Height (Feet): 5 Height (Inches): 1.00 Weight (Pounds): 155 General Appearance: no apparent distress EENT: TMs normal Neck: supple Cardiovascular: regular rhythm Respiratory/Chest: normal breath sounds Abdomen: normal bowel sounds Extremities: non-tender Edema: no edema noted Leg (L), no edema noted Leg (R) Edema: mild edema Neurologic: alert Skin: warm/dry Femi Hearn Jul 31, 2016 15:26
[2016-07-31 16:00] VITALS: BP 93/43
--- NOTE | 2016-07-31 17:16 | Infectious Diseases Prog Note ---
Assessment/Plan Problems: (1) UTI (urinary tract infection) Assessment & Plan: with MDR E.coli , received aztreonam for 5 days (2) Malfunction of percutaneous endoscopic gastrostomy (PEG) tube Assessment & Plan: S/P replacement by GI, continue local skin care. (3) Acute renal failure Assessment & Plan: suspect dehydration related, continue IVF, avoid nephrotoxic meds, nephrology is following (4) DM (diabetes mellitus) Assessment & Plan: recommend tight glycemic control to keep blood glucose between 80-120 (5) Renal insufficiency Assessment & Plan: monitor renal function , avoid nephrotoxic meds Subjective ROS Limited/Unobtainable: Yes Allergies: Coded Allergies: DORIPENEM (Verified Allergy, Severe, 03/06/15) PENICILLINS (Verified Allergy, Unknown, 06/22/13) Subjective she is demented, lying in bed, but alert, trying to pull out G tube, sitter at the bedside , not in distress. Objective Vital Signs Last 24 Hour Vital Signs Date Time Temp Pulse Resp B/P Pulse Ox O2 Delivery O2 Flow Rate FiO2 07/31/16 16:00 98.1 79 20 93/43 98 Room Air 07/31/16 13:28 122/55 07/31/16 11:45 98.2 69 18 122/55 98 Room Air 07/31/16 08:41 70 139/67 07/31/16 08:14 97.8 70 18 139/67 95 Room Air 07/31/16 06:48 153/62 07/31/16 04:00 98.1 72 22 153/62 98 Room Air 07/31/16 00:11 98.2 84 24 139/62 96 Room Air 07/30/16 22:16 121/56 07/30/16 22:00 83 121/56 07/30/16 19:45 98.2 88 22 139/65 97 Room Air 07/30/16 17:38 89 147/69 Height (Feet): 5 Height (Inches): 1.00 Weight (Pounds): 155 General Appearance: WD/WN, no acute distress HEENT: normocephalic, atraumatic, anicteric, mucous membranes moist Respiratory/Chest: chest wall non-tender, lungs clear, normal breath sounds, no respiratory distress, no accessory muscle use Cardiovascular: normal peripheral pulses, normal rate, regular rhythm Abdomen: normal bowel sounds, soft, non tender, no organomegaly, non distended , no mass Extremities: no cyanosis, no clubbing Skin: no rash, no lesions, no ulcers Laboratory Tests Test 07/31/16 05:25 White Blood Count 9.9 K/UL (4.8-10.8) Red Blood Count 3.24 M/UL (4.20-5.40) L Hemoglobin 10.5 G/DL (12.0-16.0) L Hematocrit 30.6 % (37.0-47.0) L Mean Corpuscular Volume 94 FL (80-99) Mean Corpuscular Hemoglobin 32.5 PG (27.0-31.0) H Mean Corpuscular Hemoglobin Concent 34.4 G/DL (32.0-36.0) Red Cell Distribution Width 13.0 % (11.6-14.8) Platelet Count 143 K/UL (150-450) L Mean Platelet Volume 15.4 FL (6.5-10.1) H Neutrophils (%) (Auto) 82.8 % (45.0-75.0) H Lymphocytes (%) (Auto) 7.9 % (20.0-45.0) L Monocytes (%) (Auto) 8.7 % (1.0-10.0) Eosinophils (%) (Auto) 0.3 % (0.0-3.0) Basophils (%) (Auto) 0.4 % (0.0-2.0) Sodium Level 133 mEQ/L (135-145) L Potassium Level 3.3 mEQ/L (3.4-4.9) L Chloride Level 100 mEQ/L (98-107) Carbon Dioxide Level 17 mEQ/L (20-30) L Anion Gap 16 (5-15) H Blood Urea Nitrogen 46 mg/dL (7-23) H Creatinine 1.9 mg/dL (0.5-0.9) H Estimat Glomerular Filtration Rate mL/min (>60) Glucose Level 202 mg/dL (74-106) H Hemoglobin A1c 6.4 % (< 6.0) H Calcium Level 8.0 mg/dL (8.6-10.2) L Phosphorus Level 2.6 mg/dL (2.5-4.8) Magnesium Level 2.3 mg/dL (1.7-2.5) Total Bilirubin 0.4 mg/dL (0.0-1.2) Aspartate Amino Transf (AST/SGOT) 16 U/L (5-40) Alanine Aminotransferase (ALT/SGPT) 12 U/L (3-33) Alkaline Phosphatase 87 U/L (35-104) Total Protein 5.6 g/dL (6.6-8.7) L Albumin 2.6 g/dL (3.5-5.2) L Globulin 3.0 g/dL Albumin/Globulin Ratio 0.8 (1.0-2.7) L Current Medications Medications (Trade) Dose Ordered Sig/Stephany Route PRN Reason Start Time Stop Time Status Last Admin Dose Admin Acetaminophen (Tylenol) 650 mg Q4H PRN RECTAL Mild Pain (Pain Scale 1-3) 07/24/16 19:15 08/23/16 19:14 Amlodipine Besylate (Norvasc) 10 mg DAILY GT 07/25/16 09:00 08/24/16 08:59 07/31/16 08:41 Aspirin (ASA) 81 mg DAILY GT 07/28/16 12:00 08/27/16 11:59 07/31/16 08:41 Atorvastatin Calcium (Lipitor) 20 mg BEDTIME GT 07/28/16 21:00 08/27/16 20:59 07/30/16 20:52 Dextrose (Dextrose 50%) 50 ml STAT PRN IV Hypoglycemia 07/24/16 20:30 08/23/16 20:29 Hydralazine HCl (Apresoline) 25 mg Q8HR GT 07/28/16 14:00 08/27/16 13:59 07/31/16 13:28 Insulin Aspart EVERY 6 HOURS SUBQ 07/31/16 00:00 08/30/16 00:00 07/31/16 11:24 Metoclopramide HCl (Reglan) 5 mg EVERY 6 HOURS NG 07/30/16 12:00 08/29/16 11:59 07/31/16 11:23 Olanzapine (ZyPREXA) 5 mg BEDTIME ORAL 07/28/16 21:00 08/27/16 20:59 07/30/16 20:52 Ranitidine HCl (Zantac) 150 mg ACBREAKFAST GT 07/28/16 12:00 08/27/16 11:59 07/31/16 06:47 Sodium Chloride (NS w/KCl 20mEq) 1,000 ml @ 75 mls/hr Q38P14Y IV 07/31/16 11:00 08/30/16 10:59 07/31/16 12:06 Mercedes Gamez M.D. Jul 31, 2016 17:16
--- NOTE | 2016-07-31 18:06 | General Progress Note ---
Assessment/Plan Assessment/Plan Assessment - OBS - Dysphagia - HTN - DM - Azotemia - anemia - s/p PEG Recommendations - Begin IVF - watch Cr - ? renal consult - Hold d/c - Continue TF - Elevate HOB - monitor H&H Subjective Allergies: Coded Allergies: DORIPENEM (Verified Allergy, Severe, 03/06/15) PENICILLINS (Verified Allergy, Unknown, 06/22/13) Subjective confused awake and non verbal now tolerating TF per RN Objective Last 24 Hour Vital Signs Date Time Temp Pulse Resp B/P Pulse Ox O2 Delivery O2 Flow Rate FiO2 07/31/16 16:00 98.1 79 20 93/43 98 Room Air 07/31/16 13:28 122/55 07/31/16 11:45 98.2 69 18 122/55 98 Room Air 07/31/16 08:41 70 139/67 07/31/16 08:14 97.8 70 18 139/67 95 Room Air 07/31/16 06:48 153/62 07/31/16 04:00 98.1 72 22 153/62 98 Room Air 07/31/16 00:11 98.2 84 24 139/62 96 Room Air 07/30/16 22:16 121/56 07/30/16 22:00 83 121/56 07/30/16 19:45 98.2 88 22 139/65 97 Room Air Intake and Output 07/30/16 07/31/16 19:00 07:00 Intake Total 975 ml 780 ml Output Total 225 ml 775 ml Balance 750 ml 5 ml Free Water 150 ml 180 ml IV Total 225 ml Tube Feeding 600 ml 600 ml Output Urine Total 225 ml 775 ml # Bowel Movements 6 5 Laboratory Tests 07/31/16 05:25: White Blood Count 9.9, Red Blood Count 3.24L, Hemoglobin 10.5L, Hematocrit 30.6L , Mean Corpuscular Volume 94, Mean Corpuscular Hemoglobin 32.5H, Mean Corpuscular Hemoglobin Concent 34.4, Red Cell Distribution Width 13.0, Platelet Count 143L, Mean Platelet Volume 15.4H, Neutrophils (%) (Auto) 82.8H, Lymphocytes (%) (Auto) 7.9L, Monocytes (%) (Auto) 8.7, Eosinophils (%) (Auto) 0.3, Basophils (%) (Auto) 0.4, Sodium Level 133L, Potassium Level 3.3L, Chloride Level 100, Carbon Dioxide Level 17L, Anion Gap 16H, Blood Urea Nitrogen 46H, Creatinine 1.9H, Estimat Glomerular Filtration Rate , Glucose Level 202H, Hemoglobin A1c 6.4H, Calcium Level 8.0L, Phosphorus Level 2.6, Magnesium Level 2.3, Total Bilirubin 0.4, Aspartate Amino Transf (AST/SGOT) 16, Alanine Aminotransferase (ALT/SGPT) 12, Alkaline Phosphatase 87, Total Protein 5.6L, Albumin 2.6L, Globulin 3.0, Albumin/Globulin Ratio 0.8L Height (Feet): 5 Height (Inches): 1.00 Weight (Pounds): 155 Objective Elderly woman NCAT supple CTA RRR Soft ND, GT site closed no edema OBS MARK DELGADO Jul 31, 2016 18:06
[2016-07-31] MEDS: D5 1/2NS 1,000 ML IV SCH (18:59)
[2016-07-31 20:00] VITALS: BP 107/62
[2016-07-31] MEDS: OLANZapine 2.5mg tab ORAL SCH (22:46)
[2016-07-31] MEDS: Atorvastatin 20mg tab GT SCH (22:47)
[2016-08-01] VITALS: BP 138/60
[2016-08-01] MEDS: Metoclopramide 10mg/10ml Liq NG SCH ×2 (00:40→05:52)
[2016-08-01 04:00] VITALS: BP 141/62
[2016-08-01] MEDS: D5 1/2NS 1,000 ML IV SCH (04:15)
[2016-08-01] MEDS: HydrALAZINE 25mg tab GT SCH (05:52)
[2016-08-01] MEDS: NovoLOG Insulin Flexpen SUBQ SCH ×2 (05:54)
[2016-08-01 07:25] LABS: ANION GAP 16 (5-15); CALCIUM 7.8 mg/dL (8.6-10.2); CARBON DIOXIDE 17 mEQ/L (20-30); CHLORIDE 103 mEQ/L (98-107); CREATININE 1.9 mg/dL (0.5-0.9); HEMOLYSIS 4; POTASSIUM 3.4 mEQ/L (3.4-4.9); SODIUM 136 mEQ/L (135-145)
[2016-08-01 08:40] VITALS: BP 161/73
[2016-08-01 10:13] VITALS: BP 161/73
[2016-08-01] MEDS: Aspirin Baby 81mg GT SCH (10:13)
[2016-08-01] MEDS ORDERED: Sterile Water Irrig 1000ml IRRIG ONE (11:09)
[2016-08-01] MEDS ORDERED: Tubing IV Secondary IV ONE (11:09)
[2016-08-01] MEDS ORDERED: D5 1/2NS 1000ml IV ONE (11:09)
--- NOTE | 2016-08-01 11:12 | General Progress Note ---
Assessment/Plan Assessment/Plan Assessment: # Leukocytosis - potentially 2/2 infection, stable 10-15k # Anemia 2/2 chronic disease # Thrombocytopenia 2/2 underlying infection # Dysphagia has failed swallow eval s/p PEG (and s/p exchange) # HTN # DM # Azotemia - slightly better # Hypokalemia Recommendations: - Monitor counts - Peripheral smear reviewed, is wnl - Anemia w/u has been reviewed - Does not require iron - F/U on GI recs - Staff Thank you, Femi Hearn MD Subjective Constitutional: Reports: no symptoms HEENT: Reports: no symptoms Cardiovascular: Reports: no symptoms Respiratory: Reports: no symptoms Gastrointestinal/Abdominal: Reports: no symptoms Genitourinary: Reports: burning Neurologic/Psychiatric: Reports: no symptoms Endocrine: Reports: no symptoms Hematologic/Lymphatic: Reports: anemia Allergies: Coded Allergies: DORIPENEM (Verified Allergy, Severe, 03/06/15) PENICILLINS (Verified Allergy, Unknown, 06/22/13) Subjective in bed, minimally interactive, was sleeping, s/p peg exchange Objective Last 24 Hour Vital Signs Date Time Temp Pulse Resp B/P Pulse Ox O2 Delivery O2 Flow Rate FiO2 08/01/16 10:13 83 161/73 08/01/16 08:40 97.9 83 19 161/73 95 Nasal Cannula 2.0 08/01/16 05:52 149/67 08/01/16 04:00 98.2 73 18 141/62 98 Room Air 08/01/16 03:25 98.2 08/01/16 00:00 98.2 82 20 138/60 98 Room Air 07/31/16 22:47 107/62 07/31/16 20:00 98.8 82 20 107/62 95 Room Air 07/31/16 16:00 98.1 79 20 93/43 98 Room Air 07/31/16 13:28 122/55 07/31/16 11:45 98.2 69 18 122/55 98 Room Air Intake and Output 07/31/16 08/01/16 19:00 07:00 Intake Total 1455 ml 1860 ml Output Total 900 ml Balance 555 ml 1860 ml Free Water 300 ml 100 ml IV Total 375 ml 1100 ml Tube Feeding 780 ml 660 ml Output Urine Total 900 ml # Voids 4 # Bowel Movements 2 6 Laboratory Tests 2/10/17 05:15: Sodium Level 136, Potassium Level 3.4, Chloride Level 103, Carbon Dioxide Level 17L, Anion Gap 16H, Blood Urea Nitrogen 47H, Creatinine 1.9H, Estimat Glomerular Filtration Rate , Glucose Level 267H, Calcium Level 7.8L Height (Feet): 5 Height (Inches): 1.00 Weight (Pounds): 155 General Appearance: no apparent distress EENT: TMs normal Neck: supple Cardiovascular: regular rhythm Respiratory/Chest: lungs clear Abdomen: soft Extremities: non-tender Edema: 1+ Leg (L), 1+ Leg (R) Edema: mild edema Neurologic: alert Skin: warm/dry Femi Hearn Aug 01, 2016 11:12
--- NOTE | 2016-08-01 15:04 | General Progress Note ---
Assessment/Plan Status: stable Status Narrative Cr 1.9 unchanged Assessment/Plan status: -Acute renal failure/ Underlying CKD -Dehydration -PEG malfunction -HTN (hypertension) -DM (diabetes mellitus) Plan: On IV and KCL On reglan for residual start meds via GT for bp control Monitor renal parameters- Per GI DC planning?? Subjective Date patient seen: Aug 01, 2016 Time patient seen: 09:00 ROS Limited/Unobtainable: No Constitutional: Reports: malaise, other - no further vomiting, weakness Allergies: Coded Allergies: DORIPENEM (Verified Allergy, Severe, 03/06/15) PENICILLINS (Verified Allergy, Unknown, 06/22/13) Objective Last 24 Hour Vital Signs Date Time Temp Pulse Resp B/P Pulse Ox O2 Delivery O2 Flow Rate FiO2 08/01/16 10:13 83 161/73 08/01/16 08:40 97.9 83 19 161/73 95 Nasal Cannula 2.0 08/01/16 05:52 149/67 08/01/16 04:00 98.2 73 18 141/62 98 Room Air 08/01/16 03:25 98.2 08/01/16 00:00 98.2 82 20 138/60 98 Room Air 07/31/16 22:47 107/62 07/31/16 20:00 98.8 82 20 107/62 95 Room Air 07/31/16 16:00 98.1 79 20 93/43 98 Room Air Intake and Output 07/31/16 08/01/16 19:00 07:00 Intake Total 1455 ml 1860 ml Output Total 900 ml Balance 555 ml 1860 ml Free Water 300 ml 100 ml IV Total 375 ml 1100 ml Tube Feeding 780 ml 660 ml Output Urine Total 900 ml # Voids 4 # Bowel Movements 2 6 Laboratory Tests 08/01/16 05:15: Sodium Level 136, Potassium Level 3.4, Chloride Level 103, Carbon Dioxide Level 17L, Anion Gap 16H, Blood Urea Nitrogen 47H, Creatinine 1.9H, Estimat Glomerular Filtration Rate , Glucose Level 267H, Calcium Level 7.8L Height (Feet): 5 Height (Inches): 1.00 Weight (Pounds): 155 General Appearance: no apparent distress Cardiovascular: normal rate Respiratory/Chest: decreased breath sounds Abdomen: soft Objective PE not changed DINA MONAHAN Aug 01, 2016 15:04
--- NOTE | 2016-08-01 23:11 | General Progress Note ---
Assessment/Plan Assessment/Plan Assessment - OBS - Dysphagia - HTN - DM - Azotemia - anemia - s/p PEG Recommendations - Continue TF - Elevate HOB - monitor H&H Subjective Allergies: Coded Allergies: DORIPENEM (Verified Allergy, Severe, 03/06/15) PENICILLINS (Verified Allergy, Unknown, 06/22/13) Subjective confused awake and non verbal tolerating TF for d/c today Objective Last 24 Hour Vital Signs Date Time Temp Pulse Resp B/P Pulse Ox O2 Delivery O2 Flow Rate FiO2 08/01/16 10:13 83 161/73 08/01/16 08:40 97.9 83 19 161/73 95 Nasal Cannula 2.0 08/01/16 05:52 149/67 08/01/16 04:00 98.2 73 18 141/62 98 Room Air 08/01/16 03:25 98.2 08/01/16 00:00 98.2 82 20 138/60 98 Room Air Intake and Output 07/31/16 08/01/16 19:00 07:00 Intake Total 1455 ml 1860 ml Output Total 900 ml Balance 555 ml 1860 ml Free Water 300 ml 100 ml IV Total 375 ml 1100 ml Tube Feeding 780 ml 660 ml Output Urine Total 900 ml # Voids 4 # Bowel Movements 2 6 Laboratory Tests 08/01/16 05:15: Sodium Level 136, Potassium Level 3.4, Chloride Level 103, Carbon Dioxide Level 17L, Anion Gap 16H, Blood Urea Nitrogen 47H, Creatinine 1.9H, Estimat Glomerular Filtration Rate , Glucose Level 267H, Calcium Level 7.8L Height (Feet): 5 Height (Inches): 1.00 Weight (Pounds): 155 Objective Elderly woman NCAT supple CTA RRR Soft ND, GT site closed no edema OBS MARK DELGADO Aug 01, 2016 23:11
--- NOTE | 2016-08-04 09:35 | Discharge Summary ---
Discharge Summary Hospital Course Date of Admission Jul 24, 2016 at 14:45 Date of Discharge Aug 01, 2016 at 11:10 Admitting Diagnosis GT DISLODGEMENT HPI Ninfa Tyler is a 81 year old female who was admitted on Jul 24, 2016 at 14:45 for G-Tube Dislodgement Hospital Course dc summary dictated # [id number] Discharge Medications Continued Medications: Acetaminophen (Acetaminophen) 650 Mg/20.3 Ml Soln 650 MG GT EVERY 6 HOURS for For Pain, ML 0 Refills Amino Acids/Protein Hydrolys (Pro-Stat Liquid) 30 Ml Liquid.pkt 30 ML ORAL TID, ML Amlodipine Besylate* (Amlodipine Besylate*) 10 Mg Tablet 10 MG GT DAILY, TAB Aspirin* (Aspirin*) 81 Mg Tab.chew 81 MG GT DAILY, TAB Atorvastatin Calcium* (Lipitor*) 20 Mg Tablet 20 MG GT BEDTIME, TAB Fenofibrate (Tricor) 145 Mg Tab 145 MG GT DAILY, #30 TAB 0 Refills Insulin Detemir (Levemir) 100 Unit/1 Ml Vial 20 SUBQ BEDTIME, VIAL Insulin Regular, Human* (Novolin R*) 100 Unit/1 Ml Vial 0 SUBQ .SLIDING SCALE, UNITS Linagliptin (Tradjenta) 5 Mg Tablet 5 MG GT DAILY, TAB Memantine Hcl* (Namenda*) 5 Mg Tablet 10 MG GT BID, TAB Multivitamin With Minerals (Multivitamins With Minerals*) 1 Each Tablet 1 TAB GT DAILY, TAB Quinapril Hcl (Quinapril Hcl) 40 Mg Tablet 40 MG GT DAILY, TAB Sennosides/Docusate Sodium (Senna S Tablet) 1 Each Tablet 2 TAB GT BID, TAB Discharge Condition Upon Discharge: stable Discharge Disposition Patient was discharged to SNF Discharge Diagnoses: Discharge Instructions Discharge Instructions Special Instructions I have been assigned to complete a D/C Summary on this account. I was not involved in the patient management Eli Malik NP (Vanchtein) Aug 04, 2016 09:35
--- NOTE | 2016-08-05 02:29 | Discharge Summary 2 SIG ---
DATE OF ADMISSION: 07/24/2016 DATE OF DISCHARGE: 08/01/2016 REASON FOR ADMISSION: 81-year-old female, resident of a intermediate facility, presented to emergency room for G-tube replacement. Per installation and service technician, G-tube was partially dislodged and had a tear, which was noticed by the nursing staff in the nursing facility and patient was sent for evaluation. Upon arrival, the patient did not show any signs of distress. The patient with underlying Alzheimer dementia and was unable to provide any information. No reported fevers or chills. No nausea. No vomiting. No other symptoms reported. Workup in the emergency room revealed leukocytosis, elevated BUN and creatinine, elevated sodium. Urinalysis with evidence of bacteria. Hemoglobin and hematocrit were stable. Chest x-ray was negative for any acute cardiopulmonary disease. EKG showed no ischemic change, normal sinus rhythm. G-tube balloon was very superficial and attempt to replace G-tube by emergency room doctor was unsuccessful. Gastrointestinal doctor was contacted for further management of dislodged G tube. IV fluids and IV antibiotic started , and the patient was transferred to the floor for further management. ADMITTING DIAGNOSES: 1. G-tube dislodgement. 2. Acute renal failure. 3. Urinary tract infection. 4. Dehydration. 5. Dysphagia. HOSPITAL COURSE: The patient admitted to Med/Surg floor. The patient started on IV fluids and empiric antibiotics. ID consult, computer support analyst, and GI consults were requested. The patient was NPO. The patient undergone subsequently G-tube replacement and started on tube feeding slowly. GI followed. The patient was able to tolerate G-tube feeding. No residuals. Special Day Class Teacher closely followed with renal parameters. Per computer support analyst, likely element of chronic renal disease as well. Sodium down to normal-136 after IV hydration and creatinine between 1.07 and 1.09. Special Day Class Teacher recommended to avoid nephrotoxics and increase free water via G-tube. ID followed. The patient status post aztreonam for five days for urinary tract infection. Urine culture positive for E coli. No need for antibiotics at the facility as per ID. Leukocytosis resolved, afebrile. As mentioned above, the patient was able to tolerate G-tube feedings. Strict aspiration precautions maintained. Local wound care at G tube site provided. . The patient was noted to have mild anemia. Hematology was consulted. Anemia workup revealed stable B12 and folate level, low iron, but elevated ferritin. Anemia, likely anemia of chronic disease-per marketing and public relations manager. The patient also has a history of Alzheimer dementia, and psychiatrist was consulted. Psychiatrist started the patient on Zyprexa and recommended follow up at SNF, adjust medications as needed. Psychiatrist diagnosed the patient with delirium with cognitive impairment. Blood pressure was stable. Blood sugar was managed with sliding scale insulin, was stable. Hemoglobin A1c is at goal -6.4 . Lipid panel stable. Statin and aspirin continued. TSH within normal limits. GI prophylaxis provided. Blood pressure was stable with calcium channel david and clonidine patch. Supplemental oxygen and pulmonary toilet provided as needed. No evidence of COPD exacerbation. The patient was stable for discharge to intermediate facility. DISCHARGE DIAGNOSES: 1. G-tube dislodgement, status post replacement of PEG. 2. Dysphagia. 3. Acute renal failure due to dehydration, -resolved 4. Dehydration, resolved. 5. Urinary tract infection/Escherichia coli, status post treatment. 6. Hypertension, controlled. 7. Chronic obstructive pulmonary disease, stable. 8. Hypernatremia secondary to dehydration, resolved. 9. History of cerebrovascular accident with right hemiparesis. 10. Diabetes mellitus. 11. Anemia of chronic disease. 12. Delirium with congestive impairment. DISCHARGE MEDICATIONS: See medication reconciliation list. DISCHARGE INSTRUCTIONS: The patient discharged to intermediate facility. Follow up with medical doctor at the facility. Jah Rosas M.D. I have been assigned to dictate discharge summary on this account and I was not involved in the patient's management. Eli Malik (Vanchtein) NJomar DR: MARLI JOB#: [id number] CC: [id number]
--- NOTE | 2016-08-22 09:10 | Consultation ---
DATE OF CONSULTATION: 07/28/2016 REQUESTING PHYSICIAN: Jah Rosas M.D. REASON FOR CONSULTATION: Evaluation of anemia. IDENTIFYING DATA: Dear Dr. Jah Rosas, The patient is a 81-year-old female with past medical history significant for history of atrial fibrillation, COPD, at this time presents for G-tube malfunction. She had the G-tube exchanged today and noticed to have a tear in the . She had no drainage . The patient was anemic with a hemoglobin of 11.6. Hematology service was consulted given the patient had dropped hemoglobin and hematocrit over the past several days. The patient is demented, cannot provide any further history and is a poor historian. PAST MEDICAL HISTORY: Hypertension, CHF, atrial fibrillation, COPD, and GERD. PAST SURGICAL HISTORY: G-tube placement for medications, levofloxacin. ALLERGIES: and penicillin. SOCIAL HISTORY: No significant illicit drug, tobacco or alcohol use. FAMILY HISTORY: Anemia. REVIEW OF SYSTEMS: Unable to obtain, as the patient is demented. PHYSICAL EXAMINATION: GENERAL: Patient in no acute distress. VITAL SIGNS: Temperature 98.3 degrees Fahrenheit, pulse 65, respiratory rate 12, blood pressure 150/59 and pulse oximetry 98% on room air. PULMONARY: Decreased breath sounds. CARDIOVASCULAR: Regular rhythm. No S3 or S4. GASTROINTESTINAL: Abdomen is soft, nontender, and nondistended. EXTREMITIES: There is 1+ edema. LABORATORY AND DIAGNOSTIC DATA: Hemoglobin 10.9, hematocrit 33.3 and platelet count 68,000. BUN 42 and creatinine 1.9. INR of 1. ASSESSMENT: 1. Anemia. 2. History of coronary artery disease. 3. Decreased hemoglobin and hematocrit, rule out gastrointestinal bleed. 4. Leukocytosis, potentially secondary to infection. 5. Malfunctioning percutaneous endoscopic gastrostomy tube placement, exchanged. 6. Hypertension. 7. . 8. Urinary tract infection. RECOMMENDATIONS: 1. Monitor counts and transfuse if hemoglobin drops. 2. Hemoglobin goal above 7. 3. Anemia workup not required unless hemoglobin less than 10. 4. Follow up on GI labs as well as ID labs. 5. Antibiotics as needed. 6. DVT prophylaxis with SCDs. 7. GI prophylaxis with ranitidine. 8. Discussed with staff. Thank you, Dr. Ralph Tyson, for this consult. Please do not hesitate to contact me if you have any further questions. Femi Hearn M.D. DR: RADHA JOB#: [id number] CC:
--- NOTE | 2016-08-22 09:20 | Consultation ---
DATE OF CONSULTATION: 07/25/2016 CHIEF COMPLAINT: I was asked to see this patient by Dr. Jah Rosas for evaluation of gastrostomy tube. HISTORY OF PRESENT ILLNESS: The patient is a debilitated 81-year-old woman who is a [facility]term [facility] resident, who comes in with a gastrostomy tube that had fallen out. Despite efforts in the emergency room, the patient's gastrostomy tube could not be replaced as the orifice was closed and therefore this was not re-attempted. The patient herself has advanced dementia and is unable to provide any history. There is no family available and I confirmed with the social media content specialist who did research that there is no family or durable power of senior attorney or any other decision maker for this family. According to the [facility], the patient has been since 2010 on tube feedings and reasonably stable, but now she is in the hospital. The patient herself is awake and alert and laughs when the physician is examining her. PAST MEDICAL HISTORY: History of hypertension, congestive heart failure, atrial fibrillation, chronic obstructive pulmonary disease, gastroesophageal reflux disease, advanced dementia, dysphagia status gastrostomy tube placement, and now removal. FAMILY HISTORY: Not available. SOCIAL HISTORY: The patient resides in a [facility]term [facility] and there is no recent history of smoking or drinking. ALLERGIES: . REVIEW OF SYSTEMS: Unobtainable. PHYSICAL EXAMINATION: GENERAL: This is an elderly woman, seen in her room in no distress. HEENT: Normocephalic and atraumatic. Sclerae are anicteric. Oropharynx is clear. NECK: Supple. CHEST: Clear to auscultation. CARDIOVASCULAR: Regular rate. ABDOMEN: Soft with good bowel sounds. The gastrostomy tube site was eventually closed with tube re-insertion. EXTREMITIES: No edema. NEUROLOGIC: Notable for right-sided hemiparesis. LABORATORY DATA: Noted. ASSESSMENT: This patient has had a stroke with right-sided hemiparesis and inability to eat by mouth. The patient will require re-insertion of the gastrostomy tube for safe oral intake. I will ask the speech therapist to evaluate the patient for swallow function as the patient has very poor swallow and is not a good candidate for long-term oral feeding. This patient will demise if she is not fed soon and therefore the patient will need to undergo urgent endoscopy with gastrostomy tube placement for enteral access for nutrition. Since no family is available, I would proceed with placement using a physician consent to treat. RECOMMENDATIONS: 1. Keep the patient NPO. 2. IV fluids. 3. Endoscopy with gastrostomy tube placement to replace the previous tube. Thank you for asking me to participate in the care of this patient. Michael Self M.D. DR: JUJU JOB#: [id number] CC:
== END 2016-08-01 11:10 | DRG 394 ==
LOC: ENRESERVDT → ENRESERVTM → EDBD 14:05 → EMR 14:36 → EDBEDREQ 14:43 → 4W 14:45 → EDBEDREQ 14:56 → 4W 19:52
PROC: 0DH63UZ Insertion of Feeding Device into Stomach, Percutaneous Approach (ICD-10-PCS; principal; 2016-07-28 08:02)
DX: K94.23 Gastrostomy malfunction (principal); N17.9 Acute kidney failure, unspecified; I69.351 Hemiplegia and hemiparesis following cerebral infarction affecting right dominant side; I50.9 Heart failure, unspecified; N39.0 Urinary tract infection, site not specified; R13.10 Dysphagia, unspecified; E87.1 Hypo-osmolality and hyponatremia; E86.0 Dehydration; I48.91 Unspecified atrial fibrillation; G30.9 Alzheimer's disease, unspecified; F05 Delirium due to known physiological condition; I12.9 Hypertensive chronic kidney disease with stage 1 through stage 4 chronic kidney disease, or unspecified chronic kidney disease; F02.81 Dementia in other diseases classified elsewhere, unspecified severity, with behavioral disturbance; E11.9 Type 2 diabetes mellitus without complications; N18.9 Chronic kidney disease, unspecified; Z88.0 Allergy status to penicillin; Z88.8 Allergy status to other drugs, medicaments and biological substances; Z79.4 Long term (current) use of insulin; E78.5 Hyperlipidemia, unspecified; Y83.3 Surgical operation with formation of external stoma as the cause of abnormal reaction of the patient, or of later complication, without mention of misadventure at the time of the procedure; B96.20 Unspecified Escherichia coli [E. coli] as the cause of diseases classified elsewhere; J44.9 Chronic obstructive pulmonary disease, unspecified; K21.9 Gastro-esophageal reflux disease without esophagitis; Z16.24 Resistance to multiple antibiotics
CPT/HCPCS: 36415; 71010; 74000; 74230; 80048; 80053; 80061; 81003; 82550; 82607; 82728; 82746; 82962; 82977; 83036; 83540; 83550; 83735; 83880; 84100; 84300; 84443; 84550; 85007; 85025; 85060; 85610; 85651; 85730; 86140; 87070; 87081; 87086; 87181; 87205; 89050; 93005; 94003; 94150; J1815